=== PATIENT | male | born 1970 | race Caucasian/White ===

== ENCOUNTER 2017-04-04 13:11 | Emergency (ER) | payer MEDICARE, MEDICAID ==
[2017-04-04 13:41] VITALS: BP 125/77
--- NOTE | 2017-04-04 14:26 | UC ---
Skin Complaint HPI - HPI Summary HPI Summary: 46 y/o male presents to the urgent care c/o sores in his lower lip since yesterday. Pt states they are painful and blistering. Pt states Hx of Herpes. He has been using Abreva w/o any improvement. Pain is 7/10 and sometimes itchiness. Pt also states he has been taking Bactrim for a boil he has in his back Rx by his PCP. Pt denies fever, cough, URI, SOB, chest pain, abdominal pain , N/V/D - History of Current Complaint Chief Complaint: UCSkin Time Seen by Provider: 04/04/17 13:43 Stated Complaint: SORES ON LIPS Hx Obtained From: Patient Onset/Duration: Gradual Onset, Lasting Days - 2 days, Still Present Skin Exposure Onset/Duration: Days Ago - yesterday Timing: Constant Onset Severity: Mild Current Severity: Moderate Pain Intensity: 7 Pain Scale Used: 0-10 Numeric Location: Discrete - lower lip Character: Swelling, Pruritus, Painful Aggravating Factor(s): Touch Alleviating Factor(s): OTC Meds Associated Signs & Symptoms: Positive: Rash, Tenderness. Negative: Fever, Chills Related History: Other: - Hx of herpes simplex - Allergy/Home Medications Allergies/Adverse Reactions: Allergies Allergy/AdvReac Type Severity Reaction Status Date / Time Cephalexin [From Keflex] Allergy Hives Verified 04/04/17 13:37 Ranitidine Allergy GI Upset Verified 04/04/17 13:37 Review of Systems Constitutional: Negative Skin: Rash - Over the lower lip painful sores Eyes: Negative ENT: Negative Respiratory: Negative Cardiovascular: Negative Gastrointestinal: Negative Genitourinary: Negative Motor: Negative Neurovascular: Negative Musculoskeletal: Negative Neurological: Negative Psychological: Negative Is Patient Immunocompromised?: No All Other Systems Reviewed And Are Negative: Yes PMH/Surg Hx/FS Hx/Imm Hx Previously Healthy: Yes Endocrine History: Dyslipidemia - Surgical History Surgical History: Yes Surgery Procedure, Year, and Place: 2008 herniated disc , [facility] - Family History Known Family History: Positive: Diabetes, Respiratory Disease - asthma - Social History Occupation: Employed Full-time Lives: With Family Alcohol Use: None Substance Use Type: Marijuana Substance Use Comment - Amount & Last Used: IN THE PAST Smoking Status (MU): Former Smoker Amount Used/How Often: PACK A DAY Have You Smoked in the Last Year: Yes When Did the Patient Quit Smoking/Using Tobacco: 10/2014 - Immunization History Most Recent Influenza Vaccination: n/a Most Recent Tetanus Shot: 11/2013 Physical Exam Triage Information Reviewed: Yes Vital Signs: Initial Vital Signs Temp 97.5 F 04/04/17 13:38 Pulse 71 04/04/17 13:38 Resp 16 04/04/17 13:38 BP 125/77 04/04/17 13:38 Pulse Ox 97 04/04/17 13:38 - Additional Comments Vital Signs Reviewed: Yes General: well developed, well nourished male sitting in the examining table w/o any apparent distress Eye Exam: Normal Eyes: Positive: Conjunctiva Clear - PERRLA, EOMI, fundi grossly normal ENT: Positive: Normal ENT inspection, Hearing grossly normal, Pharynx normal, TMs normal Neck: Positive: Supple, Nontender, No Lymphadenopathy Respiratory: Positive: Chest non-tender, Lungs clear, Normal breath sounds, No respiratory distress Cardiovascular: Positive: RRR, No Murmur, Pulses Normal, Brisk Capillary Refill Abdomen Description: Positive: Nontender, No Organomegaly, Soft. Negative: CVA Tenderness (R), CVA Tenderness (L) Bowel Sounds: Positive: Present Musculoskeletal: Positive: Strength Intact, ROM Intact, No Edema Neurological: Positive: Alert, Muscle Tone Normal Psychological Exam: Normal Skin: Positive: rashes - Positive lower lip with 3 vesicles over the vermilon border, tender to palpation, clear drainage.mild swelling observed Course/Dx - Course Course Of Treatment: 46 y/o male presents to the urgent care c/o sores in his lower lip since yesterday. Pt states they are painful and blistering. Pt states Hx of Herpes. He has been using Abreva w/o any improvement. Pain is 7/10 and sometimes itchiness. Pt also states he has been taking Bactrim for a boil he has in his back Rx by his PCP. Pt denies fever, cough, URI, SOB, chest pain, abdominal pain, N/V/D. Hx obtained. Pt with oral herpes on examination. pt Rx Valtrex PO and Ibuprofen PO to alleviate symptoms. Advised -If symptoms do not improve or worsen to f/u with PCP or return to the urgent care for further evaluation and treatment. Pt understood and agreed with D/C instructions - Differential Diagnoses - Skin Complaint Differential Diagnoses: Allergic Reaction, Impetigo, MRSA, Other - Herpes labialis, aphthous ulcers, stomatitis - Diagnoses Provider Diagnoses: 1- Acute oral herpes simplex Discharge - Discharge Plan Condition: Stable Disposition: HOME Prescriptions: Ibuprofen TAB* [Motrin TAB* 800 MG] 800 mg PO Q6H PRN #20 tab PRN Reason: Pain ValACYclovir (*) [Valtrex 1 GM(*)] 1 gm PO BID #4 tab Patient Education Materials: Oral Herpes Simplex Virus Infections (ED) Referrals: Tye Bhatt MD [Primary Care Provider] - If Needed Additional Instructions: 1- Please take the antibiotic as directed, continue using the Abreva on affected area 2-Please take ibuprofen PO q6-8hrs prn as instructed after meals to alleviate pain and swelling. Increase fluid intake, eat well, rest and avoid strenuous exercise 3-If symptoms do not improve or worsen please return to the urgent care or f/u with your PCP for further evaluation and treatment.
== END 2017-04-04 14:29 | disposition home or self-care (01) ==
LOC: UCEAST 13:11
DX: B00.1 Herpesviral vesicular dermatitis (principal); Z87.891 Personal history of nicotine dependence; Z88.1 Allergy status to other antibiotic agents; Z88.8 Allergy status to other drugs, medicaments and biological substances
CPT/HCPCS: 99202; G0463

== ENCOUNTER 2017-04-29 09:52 | Day surgery (SDC) | payer MEDICARE, MEDICAID ==
--- NOTE | 2017-04-24 00:53 | HP ---
CC: Dr. Bhatt * ADMITTING HISTORY AND PHYSICAL: DATE OF ADMISSION: 04/29/2017 ADMITTING DIAGNOSES: 1. History of gross hematuria. 2. Large left renal calculus. PLANNED PROCEDURE: Left ureteral stent insertion and shockwave lithotripsy of left renal calculus. SURGEON: Dr. Castano. HISTORY OF PRESENT ILLNESS: Jay Delgado Jr. is a 46-year-old gentleman who was initially evaluated for gross hematuria. On a CT urogram, he was noted to have a fairly large 1.6 to 1.7 cm calculus in the left kidney and he is now being brought in for left stent insertion and lithotripsy. PAST MEDICAL HISTORY: Significant for: 1. Depression. 2. Anger issues. PAST SURGICAL HISTORY: Significant for surgery for a herniated disk in the lower back. MEDICATIONS ON ADMISSION: 1. Prozac 10 mg daily. 2. Olanzapine 10 mg daily. 3. Omeprazole 40 mg p.r.n. (He is currently also on Keflex for a small cutaneous abscess in the upper back which he will be finishing in the next few days). ALLERGIES AND INTOLERANCES: PANTOPRAZOLE. SMOKING HISTORY: He is a former 20 back year smoker. PHYSICAL EXAMINATION GENERAL: Reveals a pleasant elderly gentleman. VITAL SIGNS: Blood pressure is 130/92, pulse 67 per minute and regular, temperature 97.5, oxygen saturation 99% on room air. CARDIOVASCULAR EXAM: Regular rate and rhythm. S1, S2. LUNGS: Clear bilaterally. ABDOMEN: Soft with mild left flank tenderness. IMPRESSION: A 46-year-old gentleman with a large calculus in the left kidney and a history of gross hematuria. PLAN: Planned procedure is left ureteral stent insertion and shockwave lithotripsy of left renal calculus. I have discussed the procedure in detail including possible risks of bleeding, infection, injury to the kidney, incomplete fragmentation, and possible need for followup procedures given the large size of the calculus. [id number]/[facility] #: [id number] [facility]
[~2017-04-29 09:52] MED LIST: Buffered Lidocaine 0.9% SYRIN* 5 ML/SYR SYRINGE INTRADERM ONE; Gentamicin ADULT (*) 160 MG in NS 0.9% 100 ML* 100 ML IVPB ONE
[2017-04-29] MEDS ORDERED: Buffered Lidocaine 0.9% SYRIN* 5 ML/SYR SYRINGE ONE (11:00)
--- NOTE | 2017-04-29 11:28 | RAD ---
INDICATION: Shockwave lithotripsy. COMPARISON: Comparison is made with a prior CT of the abdomen and pelvis from April 09, 2017 and a prior KUB series from April 21, 2017. TECHNIQUE: Frontal supine films of the abdomen were obtained. FINDINGS: The small bowel and colon appear nondistended. There are multiple calculi which project over the midportion of the left kidney spanning a 1.6 x 1.5 cm area. These appear similar to the prior study. IMPRESSION: MULTIPLE LEFT RENAL CALCULI.
[2017-04-29] MEDS ORDERED: PROCHLORPERAZINE INJ 5 MG/ML 2 ML VIAL IV PRN (11:46)
[2017-04-29] MEDS ORDERED: HYDROcodone/ACETAMIN 5-325 MG* 1 TAB PO PRN (11:46)
[2017-04-29] MEDS ORDERED: Iohexol 180 (CONTRAST) 10 ML SDV IV ONE (11:53)
[2017-04-29] MEDS ORDERED: fentaNYL* 50 MCG/ML 2 ML VIAL (100 MCG VIAL) ONE ×3 (11:54→14:56)
[2017-04-29] MEDS ORDERED: Midazolam* 1 MG/ML 5 ML VIAL (5 MG) ONE (11:54)
[2017-04-29] MEDS ORDERED: cefTRIAXone(*) 2 GM ADDV.VIAL IVPB ONE (12:03)
[2017-04-29] MEDS ORDERED: Lidocaine 2% PF * 5 ML VIAL ONE (12:05)
[2017-04-29] MEDS ORDERED: Propofol* 10 MG/ML 20 ML BTL IV PUSH ONE (12:05)
[2017-04-29] MEDS ORDERED: Furosemide IV* 10 MG/ML 2 ML VIAL (20 MG) ONE (12:40)
[2017-04-29] MEDS ORDERED: Ondansetron INJ* 2 MG/ML VIAL ONE (12:40)
[2017-04-29] MEDS ORDERED: Tamsulosin CAP* 0.4 MG ONE (13:35)
[2017-04-29] MEDS: oxyCODONE/Acetamin 5/325 MG* TAB PO PRN ×2 (13:35→13:36)
[2017-04-29] MEDS ORDERED: oxyCODONE/Acetamin 5/325 MG* TAB ONE (13:35)
[2017-04-29] MEDS: fentaNYL* 50 MCG/ML 2 ML VIAL (100 MCG VIAL) IV PRN ×4 (14:26→15:05)
[2017-04-29 16:22] VITALS: BP 131/89
--- NOTE | 2017-04-29 17:42 | RAD ---
Indication: Postop LEFT ureteral stent placement. Urolithiasis. Comparison: 1017 hours exam of the same date. Technique: Supine view of the abdomen. Report: Unremarkable bowel gas pattern. Moderately large volume of formed stool in the colon without significant rectal distension. Typical partial obscuration of the renal fossa and course of the ureters by bowel contents Fragmented appearing 2.4 cm stone at the LEFT renal pelvis with suggestion of increased fragmentation compared with the earlier exam of the same day. Otherwise no suspicious calcifications along the course of the LEFT ureteral stent. Unremarkable soft tissue contours. IMPRESSION: Fragmented appearing 2.4 cm stone at the LEFT renal pelvis with suggestion of increased fragmentation compared with the earlier exam of the same day. Otherwise no suspicious calcifications along the course of the LEFT ureteral stent.
--- NOTE | 2017-04-30 04:03 | OP ---
CC: Dr. Tye Bhatt * DATE OF OPERATION: 04/29/17 - [facility] DATE OF : 66 SURGEON: Benny Castano MD ANESTHESIOLOGIST: Dr. Whitfield. ANESTHESIA: General. PRE-OP DIAGNOSES: 1. Gross hematuria. 2. Left renal calculi. POST-OP DIAGNOSES: 1. Gross hematuria. 2. Left renal calculi. OPERATIVE PROCEDURE: 1. Cystoscopy, left retrograde pyelogram, left ureteral stent insertion. 2. Shockwave lithotripsy of left renal calculi. COMPLICATIONS: None. STENT USED: 7-Cuban stent left ureter. POSTOPERATIVE CONDITION: Stable. INDICATIONS: Jay Delgado Jr. is a 46-year-old gentleman who had been evaluated for gross hematuria. He was noted to have what appears to be a cluster of calculi aggregating about 1.5 to 1.8 cm in the left kidney. DESCRIPTION OF PROCEDURE: After induction of general anesthesia, the patient was placed in dorsal lithotomy position. Sequential compression devices were in place and functioning. Initial cystoscopy revealed a normal appearing urethra. The bladder was examined and was unremarkable. A guidewire was introduced into the left ureter. Retrograde pyelogram revealed fullness of the left collecting system with either a cluster of calculi in the mid to lower pole of the left kidney or a partial staghorn calculus. A 7-Cuban stent was introduced and positioned under fluoroscopy with good proximal and distal positioning obtained. Next, the patient was placed on the lithotripsy table in supine position. The calculi, which were now adjacent to the proximal loop of the stent were localized using fluoroscopy and shockwave lithotripsy was commenced at a rate of 60 shocks per minute. After the initial 300 shocks, there was a pause in lithotripsy for several minutes in an effort to minimize any potential trauma to the kidney. Lithotripsy was then resumed and a total of 2400 shocks were administered. The patient tolerated the procedure satisfactorily and was transferred back to the recovery area in stable condition. [id number]/[facility] #: [id number] [facility]
== END 2017-04-29 16:29 | disposition home or self-care (01) ==
LOC: OR 09:52
PROVIDERS: ATTEND Urology
DX: N20.0 Calculus of kidney (principal); R31.0 Gross hematuria; F32.89 Other specified depressive episodes; E66.9 Obesity, unspecified
CPT/HCPCS: 74018; A9270-GY; C1876; J0696; J1580; J1940; J2250; J2405; J2704; J3010

== ENCOUNTER 2018-01-08 07:31 | Emergency (ER) | payer MEDICARE, MEDICAID ==
[2018-01-08] MEDS ORDERED: NS 0.9% 1000 ML* 1,000 ML IV ONE (07:51)
--- NOTE | 2018-01-08 07:51 | ED ---
GI/ HPI - HPI Summary HPI Summary: This patient is a 47 year old M BIBA to [facility] with a chief complaint of one episode of rectal bleeding that occurred last night at 1999 and another that occurred this morning. The patient rates the pain 3/10 in severity and describes it as a burning/cramping sensation. Patient reports ABD pain and ABD cramping. Pt also c/o chest discomfort that has resolved upon arrival. Pt is requesting a work note because he called off this morning. - History of Current Complaint Chief Complaint: EDGIBleed Time Seen by Provider: 01/08/18 07:41 Stated Complaint: GI BLEED Hx Obtained From: Patient Onset/Duration: Started Hours Ago - last night at 1999, Still Present Timing: Constant Severity: Mild Current Severity: Mild Pain Intensity: 3 Location of Pain: Diffuse Pain Characteristics: Cramping Associated Signs and Symptoms: Positive: Chest Pain - that has resolved. Negative: Fever - Allergy/Home Medications Allergies/Adverse Reactions: Allergies Allergy/AdvReac Type Severity Reaction Status Date / Time pantoprazole [From Protonix] Allergy Leg Cramps Verified 01/08/18 07:50 ranitidine Allergy GI Upset Verified 01/08/18 07:50 PMH/Surg Hx/FS Hx/Imm Hx Endocrine/Hematology History: Denies: Hx Diabetes, Hx Thyroid Disease Cardiovascular History: Reports: Hx Angina - PERICARDITIS, Other Cardiovascular Problems/Disorders - pericarditis Denies: Hx Congenital Heart Disease, Hx Congestive Heart Failure, Hx Coronary Artery Disease, Hx Deep Vein Thrombosis, Hx Hypercholesterolemia, Hx Hypotension, Hx Hypertension, Hx Myocardial Infarction, Hx Pacemaker/ICD, Hx Valvular Heart Disease Respiratory History: Denies: Hx Asthma, Hx Chronic Obstructive Pulmonary Disease (COPD) GI History: Reports: Hx Gastroesophageal Reflux Disease, Hx Jaundice - TOOK MEDS RESOLVED Denies: Hx Ulcer, Other GI Disorders History: Reports: Hx Kidney Stones - left Denies: Hx Renal Disease Musculoskeletal History: Reports: Hx Arthritis - LOW BACK, feet, Hx Tendonitis - RIGHT ELBOW, shoulder Sensory History: Reports: Hx Contacts or Glasses - glasses Denies: Hx Eye Injury, Hx Eye Prosthesis, Hx Glaucoma, Hx Deafness, Hx Hearing Aid, Hx Hearing Problem Opthamlomology History: Reports: Hx Contacts or Glasses - glasses Denies: Hx Eye Injury, Hx Eye Prosthesis, Hx Glaucoma Neurological History: Reports: Hx Developmental Delay, 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 hernia repair 2014 Hx Anesthesia Reactions: No - Immunization History Date of Tetanus Vaccine: 2004 Date of Influenza Vaccine: Fall 2011 Infectious Disease History: No Infectious Disease History: Reports: Hx Hepatitis - HEP B TOOK MEDICATIONS- RESOLVED Denies: Hx Human Immunodeficiency Virus (HIV), History Other Infectious Disease, Traveled Outside the [place] in Last 30 Days - Family History Known Family History: Positive: Diabetes, Respiratory Disease - asthma - Social History Occupation: Employed Full-time Alcohol Use: None Substance Use Type: Reports: Marijuana Substance Use Comment - Amount & Last Used: IN THE PAST Smoking Status (MU): Former Smoker Amount Used/How Often: PACK A DAY, smoked off and on for 20 years Have You Smoked in the Last Year: Yes Review of Systems Negative: Fever Positive: Chest Pain - that has resolved Positive: Abdominal Pain, Other - blood in stool All Other Systems Reviewed And Are Negative: Yes Physical Exam - Summary Physical Exam Summary: VITAL SIGNS: Reviewed. GENERAL: Patient is a well-developed and nourished male who is lying comfortable in the stretcher. Patient is not in any acute respiratory distress. HEAD AND FACE: No signs of trauma. No ecchymosis, hematomas or skull depressions. No sinus tenderness. EYES: PERRLA, EOMI x 2, No injected conjunctiva, no nystagmus. EARS: Hearing grossly intact. Ear canals and tympanic membranes are within normal limits. MOUTH: Oropharynx within normal limits. NECK: Supple, trachea is midline, no adenopathy, no JVD, no carotid bruit, no c- spine tenderness, neck with full ROM. CHEST: Symmetric, no tenderness at palpation LUNGS: Clear to auscultation bilaterally. No wheezing or crackles. CVS: Regular rate and rhythm, S1 and S2 present, no murmurs or gallops appreciated. ABDOMEN: Soft, non-tender. No signs of distention. No rebound no guarding, and no masses palpated. Bowel sounds are normal. EXTREMITIES: FROM in all major joints, no edema, no cyanosis or clubbing. NEURO: Alert and oriented x 3. No acute neurological deficits. Speech is normal and follows commands. SKIN: Dry and warm Rectal: normal sphincter tone no external hemorrhoids No gross blood no melena Triage Information Reviewed: Yes Vital Signs On Initial Exam: Initial Vitals Temp Pulse Resp BP Pulse Ox 97.9 F 53 18 149/90 95 01/08/18 07:41 01/08/18 07:41 01/08/18 07:41 01/08/18 07:41 01/08/18 07:41 Vital Signs Reviewed: Yes Diagnostics - Vital Signs Vital Signs Temp Pulse Resp BP Pulse Ox 01/08/18 07:41 97.9 F 53 18 149/90 95 - Laboratory Result Diagrams: 01/08/18 08:56 01/08/18 08:56 Lab Statement: Any lab studies that have been ordered have been reviewed, and results considered in the medical decision making process. - Radiology ABD XRAY Radiology Interpretation Completed By: Radiologist - NONSPECIFIC BOWEL GAS PATTERN. LEFT NEPHROLITHIASIS. ED physician has reviewed this radiology report. - EKG 07:41 Cardiac Rate: Bradycardia EKG Rhythm: Sinus Bradycardia - at 52 BPM EKG Interpretation: no STEMI EKG Comparison: No Significant Change - Unchanged from 06-16-12 GIGU Course/Dx - Course Assessment/Plan: This patient is a 47-year-old male who presents to the emergency department with chief complaint of having rectal bleeding and some abdominal cramping since yesterday. Patient reported that after he had a bowel movement he noticed some blood when he wiped himself with the toilet paper. First episode was at 3 PM and the second episode was at 7 PM. Patient has no history of hemorrhoids. Patient denies any blood thinners or any use of aspirin or NSAIDs. Blood test results shows a slight decrease in a hemoglobin of 13.9 and a hematocrit of 41. Platelets are 137. Glucose 119. Stool blood is negative. Chest pain is resolved. Troponin is negative and patient has no comorbidities. In the ED course the patient was given IV fluids. Abdomen x- ray with no acute pathology. Since the patient is hemodynamically stable, the H &H is stable, and the stool occult blood is negative I believe that the patient can be safely discharged home with follow-up with primary care physician. The patient was given instructions to return to the emergency department he develops any other episodes of rectal bleed, abdominal pain, dizziness, palpitations. I discussed all the findings and test results with the patient. Patient was instructed to return to the emergency room immediately if any of the symptoms return or worsens. Plan of care was discussed with the patient and understands and agrees. All questions were answered at patient satisfaction. There were no further complaints or concerns. Lung exam before discharge: CTA B/L. Good air exchange. No wheezing or crackles heard. CVS: S1 and S2 present. No murmurs appreciated. Patient is alert and oriented x 3. Patient is hemodynamically stable. Patient will be discharged home with follow up PCP in the next 2-3 days - Diagnoses Provider Diagnoses: Rectal bleed, Abdominal cramping Discharge - Sign-Out/Discharge Documenting (check all that apply): Patient Departure - Discharge Plan Condition: Stable Disposition: HOME Patient Education Materials: Rectal Bleeding (ED), Acute Abdominal Pain (ED) Forms: *Work Release Referrals: Tye Bhatt MD [Primary Care Provider] - 2 Days Additional Instructions: RETURN TO THE EMERGENCY DEPARTMENT FOR CHANGING OR WORSENING SYMPTOMS. FOLLOW UP WITH PCP IN 1-2 DAYS. - Billing Disposition and Condition Condition: STABLE Disposition: Home - Attestation Statements Document Initiated by Tona: Yes Documenting Scribe: Anthony Palumbo Provider For Whom Tona is Documenting (Include Credential): Joey Vu MD Scribe Attestation: Anthony Adorno scribed for Joey Vu MD on 01/08/18 at 1041. Scribe Documentation Reviewed: Yes Provider Attestation: The documentation as recorded by the Anthony brown accurately reflects the service I personally performed and the decisions made by me, Joey Vu MD
[2018-01-08] MEDS ORDERED: Pantoprazole IV* 40 MG IV ONE (07:53)
[2018-01-08] MEDS ORDERED: Aspirin 81 mg CHEW TAB* 81 MG TAB.CHEW PO ONE (07:54)
--- NOTE | 2018-01-08 08:25 | RAD ---
HISTORY: Abdominal pain COMPARISONS: May 28, 2017 VIEWS: Frontal supine and upright views of the abdomen. FINDINGS: BOWEL: There is a nonspecific bowel gas pattern, with nondilated small bowel gas noted. There is a moderate amount of stool within the colon. CALCULI: Again noted are calculi overlying the left renal parenchymal shadow stable from May 28, 2012. BONES AND SOFT TISSUES: Mild degenerative changes are noted. OTHER FINDINGS: The lung bases are clear. There is no subphrenic gas. IMPRESSION: NONSPECIFIC BOWEL GAS PATTERN. LEFT NEPHROLITHIASIS.
[2018-01-08 09:06] LABS: ABS Basophils 0 10^3/ul (0-0.2); ABS Eosinophils 0.1 10^3/ul (0-0.6); ABS Lymphocytes 2.1 10^3/ul (1.0-4.8); ABS Monocytes 0.6 10^3/ul (0-0.8); ABS Nucleated RBC 0 10^3/ul; Eosinophil % 1.9 % (0-6); Hematocrit 41 % (42-52); Hemoglobin 13.9 g/dl (14.0-18.0); Lymphocyte % 36.6 % (25-47); Mean Corpuscular HGB Conc 34 g/dl (31-36); Mean Corpuscular Hemoglobin 30 pg (27-31); Mean Corpuscular Volume 88 fL (80-94); Mean Platelet Volume 9.3 um3 (7.4-10.4); Nucleated Red Blood Cells % 0; Platelet Count 137 10^3/ul (150-450); Red Blood Count 4.58 10^6/ul (4.00-5.40); Red Cell Distribution Width 14 % (10.5-15); White Blood Count 5.8 10^3/ul (3.5-10.8)
[2018-01-08 09:14] LABS: INR 0.95 (0.77-1.02)
[2018-01-08 09:27] LABS: EGFR Non-African American 97.1 (>60)
[2018-01-08 09:43] VITALS: BP 149/85
== END 2018-01-08 10:02 | disposition home or self-care (01) ==
LOC: ED 07:31
DX: K62.5 Hemorrhage of anus and rectum (principal); R10.9 Unspecified abdominal pain; N20.0 Calculus of kidney; F32.9 Major depressive disorder, single episode, unspecified; F41.9 Anxiety disorder, unspecified; Z87.891 Personal history of nicotine dependence
CPT/HCPCS: 36415; 74019; 80053; 82272; 83690; 84484; 85025; 85610; 85730; 86140; 86850; 86900; 86901; 93005; 96361; 96374; 99283

== ENCOUNTER 2018-07-27 08:09 | Emergency (ER) | payer MEDICARE, MEDICAID ==
--- NOTE | 2018-07-27 08:33 | ED ---
Abdominal Pain/Male - HPI Summary HPI Summary: This pt is a 48 y/o male presenting to [facility] via EMS for lower abd pain for the past 4 days. Pt reports his symptoms began with nausea 4 days ago and then with diarrhea. He describes diarrhea as watery, nonbloody and without mucous. He notes now his symptoms have worsen and has lower abd pain with "a lot of gas." Additionally states his urine is bella color. Denies fever or chills. Denies recent travel and recent antibiotics. Pt states he has been taking Nyquil and Dayquil for flu symptoms. - History of Current Complaint Stated Complaint: ABD PAIN PER EMS Time Seen by Provider: 07/27/18 08:14 Hx Obtained From: Patient Onset/Duration: Lasting Days, Still Present Timing: Lasting Days Severity Currently: Moderate Pain Scale Used: 0-10 Numeric Location: Other - lower abdominal Radiates: No Aggravating Factor(s): Nothing Alleviating Factor(s): Nothing Associated Signs And Symptoms: Positive: Nausea, Diarrhea, Other - POS: urine is bella color. Negative: Fever, Chest Pain - Allergies/Home Medications Allergies/Adverse Reactions: Allergies Allergy/AdvReac Type Severity Reaction Status Date / Time pantoprazole [From Protonix] Allergy Leg Cramps Verified 01/08/18 07:50 ranitidine Allergy GI Upset Verified 01/08/18 07:50 PMH/Surg Hx/FS Hx/Imm Hx Endocrine/Hematology History: Denies: Hx Diabetes, Hx Thyroid Disease Cardiovascular History: Reports: Hx Angina - PERICARDITIS, Other Cardiovascular Problems/Disorders - pericarditis Denies: Hx Congenital Heart Disease, Hx Congestive Heart Failure, Hx Coronary Artery Disease, Hx Deep Vein Thrombosis, Hx Hypercholesterolemia, Hx Hypotension, Hx Hypertension, Hx Myocardial Infarction, Hx Pacemaker/ICD, Hx Valvular Heart Disease Respiratory History: Denies: Hx Asthma, Hx Chronic Obstructive Pulmonary Disease (COPD) GI History: Reports: Hx Gastroesophageal Reflux Disease, Hx Jaundice - TOOK MEDS RESOLVED Denies: Hx Ulcer, Other GI Disorders History: Reports: Hx Kidney Stones - left Denies: Hx Renal Disease Musculoskeletal History: Reports: Hx Arthritis - LOW BACK, feet, Hx Tendonitis - RIGHT ELBOW, shoulder Sensory History: Reports: Hx Contacts or Glasses - glasses Denies: Hx Eye Injury, Hx Eye Prosthesis, Hx Glaucoma, Hx Deafness, Hx Hearing Aid, Hx Hearing Problem Opthamlomology History: Reports: Hx Contacts or Glasses - glasses Denies: Hx Eye Injury, Hx Eye Prosthesis, Hx Glaucoma Neurological History: Reports: Hx Developmental Delay, 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 hernia repair 2014 Hx Anesthesia Reactions: No - Immunization History Date of Tetanus Vaccine: 2004 Date of Influenza Vaccine: Fall 2011 Infectious Disease History: Reports: Hx Hepatitis - HEP B TOOK MEDICATIONS- RESOLVED Denies: Hx Human Immunodeficiency Virus (HIV), History Other Infectious Disease - Family History Known Family History: Positive: Diabetes, Respiratory Disease - asthma - Social History Alcohol Use: None Substance Use Type: Reports: Marijuana Substance Use Comment - Amount & Last Used: IN THE PAST Smoking Status (MU): Former Smoker Amount Used/How Often: PACK A DAY, smoked off and on for 20 years Have You Smoked in the Last Year: Yes Review of Systems Negative: Fever, Chills Positive: Abdominal Pain, Diarrhea, Nausea Genitourinary: Other - POS: urine is bella color All Other Systems Reviewed And Are Negative: Yes Physical Exam - Summary Physical Exam Summary: VITAL SIGNS: Reviewed. GENERAL: Patient is a well-developed and nourished male who is lying comfortable in the stretcher. Patient is not in any acute respiratory distress. HEAD AND FACE: Normocephalic and atraumatic. EYES: PERRLA, EOMI x 2, No injected conjunctiva. EARS: Hearing grossly intact. Ear canals and tympanic membranes are WNL. MOUTH: Oropharynx within normal limits. NECK: Supple, trachea is midline, no adenopathy, no JVD. CHEST: Symmetric, no tenderness at palpation LUNGS: Clear to auscultation bilaterally. No wheezing or crackles. CVS: RRR, S1 and S2 present, no murmurs or gallops appreciated. ABDOMEN: Soft, lower abdominal tenderness. No signs of distention. Positive bowel sounds. No rebound no guarding, and no masses palpated. No abdominal bruit or pulsations. EXTREMITIES: FROM in all major joints, no edema, no cyanosis or clubbing. NEURO: Alert and oriented x 3. No acute neurological deficits. Speech is normal. SKIN: Dry and warm Triage Information Reviewed: Yes Vital Signs Reviewed: Yes Diagnostics - Laboratory Result Diagrams: 07/27/18 08:36 07/27/18 08:36 Lab Statement: Any lab studies that have been ordered have been reviewed, and results considered in the medical decision making process. - EKG 08:39 Cardiac Rate: Bradycardia - at 57 bpm EKG Rhythm: Sinus Bradycardia Summary of EKG Findings: No ST elevations. Normal axis. Re-Evaluation - Re-Evaluation First Eval Re-Evaluation Time: 10:40 Comment: Pt provided a stool sample and it was formed. No diarrhea. I reviewed the lab results with pt. He will be discharged home. Abdominal Pain Male Course/Dx - Course Assessment/Plan: This patient is a 48-year-old male who presents to the emergency department with chief complaint of having nausea, vomiting, diarrhea and diffuse abdominal pain. Blood work without any significant abnormality except for platelets of 142, CRP of 13.2, total protein is 6.3, urinalysis is negative UTI. The patient was able to give a stool sample which is formed and is not diarrhea therefore the patient is getting better. After hydration the patient will be discharged home with follow-up from his primary care physician. I discussed all the findings and test results with the patient. Patient was instructed to return to the emergency room immediately if any of the symptoms return worsens. Plan of care was discussed with the patient and understands and agrees. All questions were answered at patient satisfaction. There were no further complaints or concerns. Lung exam before discharge: CTA B/L. Good air exchange. No wheezing or crackles heard. CVS: S1 and S2 present. No murmurs appreciated. Patient is alert and oriented x 3. Patient is hemodynamically stable. Patient will be discharged home with follow up PCP in the next 2-3 days. - Diagnoses Provider Diagnoses: Nausea and vomiting Discharge - Sign-Out/Discharge Documenting (check all that apply): Patient Departure - Discharge home Patient Received Moderate/Deep Sedation with Procedure: No - Discharge Plan Condition: Stable Disposition: HOME Patient Education Materials: Acute Nausea and Vomiting (ED) Referrals: Tye Bhatt MD [Primary Care Provider] - Additional Instructions: PLEASE FOLLOW UP WITH YOUR PRIMARY CARE PROVIDER IN 2-3 DAYS. RETURN TO THE ED FOR ANY WORSENING OR NEW SYMPTOMS. - Billing Disposition and Condition Condition: STABLE Disposition: Home - Attestation Statements Document Initiated by Tona: Yes Documenting Scribe: Ivy Soler Provider For Whom Scribe is Documenting (Include Credential): Joey Vu MD Scribe Attestation: Ivy Adorno, scribed for Joey Vu MD on 07/27/18 at 1838. Scribe Documentation Reviewed: Yes Provider Attestation: The documentation as recorded by the Ivy brown accurately reflects the service I personally performed and the decisions made by , Joey Vu MD Status of Scribe Document: Viewed
[2018-07-27 08:46] LABS: ABS Basophils 0 10^3/ul (0-0.2); ABS Eosinophils 0.1 10^3/ul (0-0.6); ABS Lymphocytes 1.6 10^3/ul (1.0-4.8); ABS Monocytes 0.9 10^3/ul (0-0.8); ABS Neutrophils 3.2 10^3/ul (1.5-7.7); ABS Nucleated RBC 0 10^3/ul; Eosinophil % 1.4 %; Hematocrit 41 % (36-46); Hemoglobin 14.1 g/dL (14.0-18.0); Lymphocyte % 27.6 %; Mean Corpuscular HGB Conc 34 g/dL (31-36); Mean Corpuscular Hemoglobin 30 pg (27-31); Mean Corpuscular Volume 88 fL (80-94); Mean Platelet Volume 8.8 fL (7.4-10.4); Nucleated Red Blood Cells % 0.1; Platelet Count 142 10^3/uL (150-450); Red Blood Count 4.65 10^6 /uL (4.18-5.48); Red Cell Distribution Width 14 % (10.5-15); White Blood Count 5.8 10^3/uL (3.5-10.8)
[2018-07-27 09:02] LABS: Albumin 3.9 g/dL (3.2-5.2); Albumin/Globulin Ratio 1.6 (1-3); C Reactive Protein 13.21 mg/L (<8.01); Calcium 8.9 mg/dL (8.6-10.3); EGFR African American 123.8 (>60); EGFR Non-African American 102.3 (>60); Globulin 2.4 g/dL (2-4); Total Bilirubin 0.9 mg/dL (0.2-1.0); Total Protein 6.3 g/dL (6.4-8.9)
[2018-07-27 09:24] LABS: Urine Appearance Cloudy; Urine Bilirubin Negative (Negative); Urine Blood Negative (Negative); Urine Color Amber; Urine Glucose Negative (Negative); Urine Ketones Negative (Negative); Urine Nitrite Negative (Negative); Urine Protein Negative (Negative); Urine Specific Gravity 1.025 (1.010-1.030); Urine Urobilinogen Negative (Negative)
[2018-07-27 10:56] VITALS: BP 107/71
== END 2018-07-27 10:56 | disposition home or self-care (01) ==
LOC: ED 08:09
DX: R11.2 Nausea with vomiting, unspecified (principal); R10.30 Lower abdominal pain, unspecified; Z87.891 Personal history of nicotine dependence; K21.9 Gastro-esophageal reflux disease without esophagitis; Z87.442 Personal history of urinary calculi; R62.50 Unspecified lack of expected normal physiological development in childhood; F41.9 Anxiety disorder, unspecified; F32.9 Major depressive disorder, single episode, unspecified
CPT/HCPCS: 36415; 80053; 81003; 82550; 83605; 83690; 85025; 86140; 93005; 99282

== ENCOUNTER 2019-02-25 20:44 | Emergency (ER) | payer MEDICAID, MEDICARE ==
[~2019-02-25 20:44] MED LIST changes: -Buffered Lidocaine 0.9% SYRIN* 5 ML/SYR SYRINGE INTRADERM ONE; -Gentamicin ADULT (*) 160 MG in NS 0.9% 100 ML* 100 ML IVPB ONE; +Lidocaine 2% w/ EPI 1:200,000* 20 ML SDV VIAL INJ SCH
[2019-02-25] MEDS ORDERED: Ketorolac INJ* 30 MG/ML 1 ML VIAL IM ONE ×2 (21:40)
--- NOTE | 2019-02-25 21:42 | ED ---
Neck Pain - HPI Summary HPI Summary: 48 year old male presents with back pain for the past couple days. He states he was walking at work when he felt a pop. He states that he had numbness into his hands. He states that has resolved. States has been having pain since. He states today at work felt another pop. He states that he did not develop numbness with this time. He denies any weakness. No numbness or tingling currently. Has full range of motion neck. No fevers. No recent illness. He denies any chest pain or shortness breath. No headache. No visual changes. Pain is mostly on the side of his neck. Denies any history of neck issues. Has history of mental health issues. - History of Current Complaint Chief Complaint: EDNeckComplaint Stated Complaint: GENERAL PER PT Time Seen by Provider: 02/25/19 21:30 Pain Intensity: 8 - Allergies/Home Medications Allergies/Adverse Reactions: Allergies Allergy/AdvReac Type Severity Reaction Status Date / Time pantoprazole [From Protonix] Allergy Leg Cramps Verified 02/25/19 21:23 ranitidine Allergy GI Upset Verified 02/25/19 21:23 PMH/Surg Hx/FS Hx/Imm Hx Endocrine/Hematology History: Denies: Hx Diabetes, Hx Thyroid Disease Cardiovascular History: Reports: Hx Angina - PERICARDITIS, Other Cardiovascular Problems/Disorders - pericarditis Denies: Hx Congenital Heart Disease, Hx Congestive Heart Failure, Hx Coronary Artery Disease, Hx Deep Vein Thrombosis, Hx Hypercholesterolemia, Hx Hypotension, Hx Hypertension, Hx Myocardial Infarction, Hx Pacemaker/ICD, Hx Valvular Heart Disease Respiratory History: Denies: Hx Asthma, Hx Chronic Obstructive Pulmonary Disease (COPD) GI History: Reports: Hx Gastroesophageal Reflux Disease, Hx Jaundice - TOOK MEDS RESOLVED Denies: Hx Ulcer, Other GI Disorders History: Reports: Hx Kidney Stones - left Denies: Hx Renal Disease Musculoskeletal History: Reports: Hx Arthritis - LOW BACK, feet, Hx Tendonitis - RIGHT ELBOW, shoulder Sensory History: Reports: Hx Contacts or Glasses - glasses Denies: Hx Eye Injury, Hx Eye Prosthesis, Hx Glaucoma, Hx Deafness, Hx Hearing Aid, Hx Hearing Problem Opthamlomology History: Reports: Hx Contacts or Glasses - glasses Denies: Hx Eye Injury, Hx Eye Prosthesis, Hx Glaucoma Neurological History: Reports: Hx Developmental Delay, 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 hernia repair 2014 Hx Anesthesia Reactions: No - Immunization History Date of Tetanus Vaccine: 2004 Date of Influenza Vaccine: Fall 2011 Infectious Disease History: No Infectious Disease History: Reports: Hx Hepatitis - HEP B TOOK MEDICATIONS- RESOLVED Denies: Hx Human Immunodeficiency Virus (HIV), History Other Infectious Disease, Traveled Outside the in Last 30 Days - Family History Known Family History: Positive: Diabetes, Respiratory Disease - asthma - Social History Alcohol Use: None Substance Use Type: Reports: Marijuana Substance Use Comment - Amount & Last Used: IN THE PAST Smoking Status (MU): Former Smoker Amount Used/How Often: PACK A DAY, smoked off and on for 20 years Have You Smoked in the Last Year: Yes Review of Systems Negative: Fever Negative: Chest Pain Negative: Shortness Of Breath Positive: Myalgia - neck pain All Other Systems Reviewed And Are Negative: Yes Physical Exam Triage Information Reviewed: Yes Vital Signs On Initial Exam: Initial Vitals Temp Pulse Resp BP Pulse Ox 98.2 F 88 18 140/96 96 02/25/19 21:10 02/25/19 21:10 02/25/19 21:10 02/25/19 21:10 02/25/19 21:10 Vital Signs Reviewed: Yes Appearance: Positive: Well-Appearing Skin: Positive: Warm, Dry Head/Face: Positive: Normal Head/Face Inspection Eyes: Positive: Normal, Conjunctiva Clear ENT: Positive: Pharynx normal Respiratory/Lung Sounds: Positive: Clear to Auscultation, Breath Sounds Present Cardiovascular: Positive: Normal, RRR Musculoskeletal: Positive: Strength/ROM Intact - neck, Other - tenderness sides of neck, good site leasing agent strength, sensation grossly intact, good pulses Neurological: Positive: Normal, Reflexes Intact - biceps Psychiatric: Positive: Normal Procedures - Sedation Patient Received Moderate/Deep Sedation with Procedure: No Diagnostics - Vital Signs Vital Signs Temp Pulse Resp BP Pulse Ox 02/25/19 21:10 98.2 F 88 18 140/96 96 - Laboratory Lab Statement: Any lab studies that have been ordered have been reviewed, and results considered in the medical decision making process. - CT neck CT Interpretation Completed By: Radiologist Summary of CT Findings: IMPRESSION: Mild multilevel cervical spondylopathy. Re-Evaluation - Re-Evaluation First Eval Re-Evaluation Time: 23:25 Change: Improved Comment: feeling better Neck Course/Dx - Course Course Of Treatment: 48 year old male presents with back pain for the past couple days. He states he was walking at work when he felt a pop. He states that he had numbness into his hands. He states that has resolved. States has been having pain since. He states today at work felt another pop. He states that he did not develop numbness with this time. He denies any weakness. No numbness or tingling currently. Has full range of motion neck. No fevers. No recent illness. He denies any chest pain or shortness breath. No headache. No visual changes. Pain is mostly on the side of his neck. Denies any history of neck issues. Has history of mental health issues. On exam has tenderness over sides of neck. Neurovascular intact. CT shows multilevel degenerative changes. will discharge with steriods and lidocaine patch. patient understand and agrees with plan. - Diagnoses Differential Dx/HQI/PQRI: Positive: Arthritis, Sprain, Strain Provider Diagnoses: Neck pain Discharge ED - Sign-Out/Discharge Documenting (check all that apply): Patient Departure - Discharge Plan Condition: Good Disposition: HOME Prescriptions: Lidocaine PATCH 5%* [Lidoderm 5% Patch*] 1 patch TRANSDERM DAILY #5 patch methylPREDNISolone [Medrol Dosepak 4 MG*] 4 mg PO .SEE WILLA INSTRUCTION #1 packet Patient Education Materials: Neck Pain (ED) Forms: *Work Release Referrals: Tye Bhatt MD [Primary Care Provider] - Additional Instructions: Follow directions on package for Medrol pack Apply lidocaine patches to area for up to 12 hours in one 24 hour period Use ibuprofen or Tylenol for pain every 6 hours ice/heat area, move as much as possible Follow up with primary within 5 days Return to ED if develop any new or worsening symptoms - Billing Disposition and Condition Condition: GOOD Disposition: Home
--- OUTSIDE RECORDS SUMMARY | 2019-02-25 21:44 | XMS REPORT | Continuity of Care Document ---
:1970 External Reference #:[id number] Author Name Kala Matson, SUSI Address [address] [place] [address] Care Team Providers Name Role Phone Ananth Marin MD - Surgery Care Team Information Lead Person [phone] [facility] Physical Care Team Information Lead Person Therapy - Physical Therapy Mele Schafer MD - Orthopaedic Care Team Information Lead Person Surgery Benny Castano - Urology Care Team Information Lead Person [phone] Problems Active Problems Provider Date Hyperlipidemia Tye Bhatt M.D. Onset: 12/18/2006 Low back pain Tye Bhatt M.D. Onset: 01/29/2007 Gastroesophageal reflux disease Tye Bhatt M.D. Onset: 01/29/2007 Anxiety state Tye Bhatt M.D. Onset: 04/09/2007 Obesity Tye Bhatt M.D. Onset: 11/10/2007 Pure hyperglyceridemia Tye Bhatt M.D. Onset: 03/05/2009 Type 2 diabetes mellitus Tye Bhatt M.D. Onset: 07/02/2009 Epigastric pain Tye Bhatt M.D. Onset: 12/20/2010 Arthropathy Tye Bhatt M.D. Onset: 12/20/2010 Epidermoid cyst Tye Bhatt M.D. Onset: 02/03/2011 Acute sinusitis Tye Bhatt M.D. Onset: 04/15/2011 Acute bronchitis Tye Bhatt M.D. Onset: 04/15/2011 Acute upper respiratory infection Tye Bhatt M.D. Onset: 04/15/2011 Cough Tye Bhatt M.D. Onset: 07/14/2011 Allergic condition Tye Bhatt M.D. Onset: 07/14/2011 Enteritis due to specified virus Alex Tam M.D. Onset: 08/07/2011 Nausea Tye Bhatt M.D. Onset: 08/25/2011 Constipation Tye Bhatt M.D. Onset: 09/20/2011 Cellulitis and abscess of trunk Tye Bhatt M.D. Onset: 09/20/2011 Allergic rhinitis Tye Bhatt M.D. Onset: 09/20/2011 Cellulitis Nicole Benavides M.D. Onset: 09/25/2011 Cellulitis Alex Tam M.D. Onset: 10/23/2011 Acute pharyngitis Tye Bhatt M.D. Onset: 03/02/2012 H/O: sexual function problem Tye Bhatt M.D. Onset: 03/02/2012 Herpes simplex Tye Bhatt M.D. Onset: 03/13/2012 Arthralgia of the pelvic region and thigh Tye Bhatt M.D. Onset: 2012 Diarrhea Tye Bhatt M.D. Onset: 07/20/2012 Impacted cerumen Tye Bhatt M.D. Onset: 08/27/2012 Dermatophytosis of the body Tye Bhatt M.D. Onset: 08/29/2013 Open wound of finger without complication Tye Bhatt M.D. Onset: 2013 Abnormal weight gain Tye Bhatt M.D. Onset: 06/19/2014 Adult health examination Tye Bhatt M.D. Onset: 10/09/2014 Cramp in lower leg associated with rest Tye Bhatt M.D. Onset: 2014 High risk sexual behavior Tye Bhatt M.D. Onset: 12/03/2015 Recurrent major depressive episodes Tye Bhatt M.D. Onset: 12/25/2016 Sciatica Tye Bhatt M.D. Onset: 12/25/2016 Feeling irritable Tye Bhatt M.D. Onset: 03/24/2017 Social History Type Date Description Comments Sex Unknown Tobacco Use Start: Unknown Nonsmoker ETOH Use Occasional Tobacco Use Start: Unknown End: Unknown Patient is a former smoker Smoking Status Reviewed: 01/09/18 Patient is a former smoker Allergies, Adverse Reactions, Alerts Active Allergies Reaction Severity Comments Date Pantoprazole severe headache, muscle cramps. 04/26/2013 Zantac 09/09/2017 Inactive Allergies Keflex diarrhea 11/03/2012 Medications Active Medications SIG Qnty Indications Ordering Provider Date Omeprazole 2 by mouth 42caps K21.9 Tiffanie Hoover, [employer] SUPERVISOR 11/24/2018 20mg Capsules every day for DR two weeks, then 1 po qd History Medications Note please administer 1units Tye Bhatt, 09/17/2018 - the Hep A/Hep b Lizzie 12/30/2018 vaccine Azithromycin 2 by mouth today 6tabs J06Andrei Hair 08/05/2018 - 250mg then 1 by mouth Lizzie Ho 08/10/2018 Tablets every day x 4 days Ipratropium [place] 2 sprays each 30ml J06Andrei Hair 08/05/2018 - nostril three Lizzie Ho 08/12/2018 0.06% Solution times a day Note For Work Jay was seen by A09 Tiffanie Hoover, 07/28/2018 - me today, has [employer] SU[employer]OR 08/05/2018 missed work on 3\\30, 4\\1, 4\\2\\ and 4\\3. He may not return to work until 4\\5. Medications Administered in Office Medication SIG Qnty Indications Ordering Provider Date TB Intradermal Test Tye Bhatt M.D. 12/22/2018 Injection Injection Subcutaneous Or Donte Cortés M.D. 12/08/2008 Intramuscular Injection TB Intradermal Test Nurse, Nurse 03/10/2000 Injection Immunizations CPT Code Status Date Vaccine Lot # [id number] Given 04/08/2016 Influenza Vac, Quadrivalent, Slit Virus, Im [id number] Given 12/13/2013 Tetanus And Diptheria Adult Preservative Free >7Yrs [id number] Given 02/23/2013 Split Influenza Medicare: Fluzone 97069 Given 02/23/2013 DO Not Use Split Influenza Virus Vaccine [id number] 72144 Given 01/13/2012 DO Not Use Split Influenza Virus Vaccine [id number] 17613 Given 02/03/2011 Preservative free flu 3 yrs+ and older [id number] 63161 Given 02/23/2010 DO Not Use Split Influenza Virus Vaccine [id number] Given 02/16/2008 DO Not Use Split Influenza Virus Vaccine [id number] 11806 Given 09/12/2002 Td Immunization, For Use In Individuals 7 Years Or Older Vital Signs Date Vital Result Comment 12/30/2018 5:49pm BP Systolic 140 mmHg BP Diastolic 80 mmHg Heart Rate 84 /min Body Temperature 98.8 F Respiratory Rate 16 /min Height 76.75 inches 6'4.75" measured 12/25/16 Weight 321.00 lb BMI (Body Mass Index) 38.3 kg/m2 11/24/2018 12:05pm BP Systolic 144 mmHg BP Diastolic 100 mmHg Heart Rate 80 /min Body Temperature 98.4 F Respiratory Rate 12 /min Height 76.75 inches 6'4.75" measured 12/25/16 Weight 320.00 lb BMI (Body Mass Index) 38.2 kg/m2 Results Test Date Facility Test Result H/L Range Note Laboratory test [facility] RPR Non Reactive Non Reactive 1 finding 9 [address] [place] [address] (103)- - HSV 1 & 2 Igm [facility] HSV 1 IgM <1:10 titer <1:10 AB, Indirect 9 [address] [facility] [place] [address] (141)- - HSV 2 IgM Antibodies <1:10 titer <1:10 2 Chlamydia/GC 11/24/2018 [facility] Chlamydia Negative Negative Amplification [address] [facility] trachomatis, [place] [address] (508)- - Neisseria gonorrhoeae, [place] Negative Negative Laboratory test 11/24/2018 [facility] HIV 1&2 Antibody neg Negative finding (313)- - Screen (Fma) HCV AB (Fma) neg negative CBC Auto Diff 07/27/2018 [facility] White Blood Count 5.8 10^3/uL Normal 3.5- 10.8 Red Blood Count 4.65 10^6/uL Normal 4.18-5.48 Hemoglobin 14.1 g/dL Normal 14.0-18.0 Hematocrit 41 % Normal 36-46 Mean Corpuscular Volume 88 fL Normal 80-94 Mean Corpuscular Hemoglobin 30 pg Normal 27-31 Mean Corpuscular HGB Conc 34 g/dL Normal 31-36 Red Cell Distribution Width 14 % Normal 10.5-15 Platelet Count 142 10^3/uL Low 150-450 Mean Platelet Volume 8.8 fL Normal 7.4-10.4 Abs Neutrophils 3.2 10^3/uL Normal 1.5-7.7 Abs Lymphocytes 1.6 10^3/uL Normal 1.0-4.8 Abs Monocytes 0.9 10^3/uL High 0-0.8 Abs Eosinophils 0.1 10^3/uL Normal 0-0.6 Abs Basophils 0 10^3/uL Normal 0-0.2 Abs Nucleated RBC 0 10^3/uL Granulocyte % 55.5 % Lymphocyte % 27.6 % Monocyte % 15.0 % Eosinophil % 1.4 % Basophil % 0.5 % Nucleated Red Blood Cells % 0.1 Laboratory test finding 07/27/2018 [facility] Lactic Acid 0.9 mmol/L Normal 0.5- 2.0 3 Comp Metabolic Panel 07/27/2018 [facility] Sodium 139 mmol/L Normal 135-145 Potassium 4.0 mmol/L Normal 3.5-5.0 Chloride 106 mmol/L Normal 101-111 Co2 Carbon Dioxide 28 mmol/L Normal 22-32 Anion Gap 5 mmol/L Normal 2-11 Glucose 109 mg/dL High 70-100 Blood Urea Nitrogen 16 mg/dL Normal 6-24 Creatinine 0.80 mg/dL Normal 0.67-1.17 BUN/Creatinine Ratio 20.0 Normal 8-20 Calcium 8.9 mg/dL Normal 8.6-10.3 Total Protein 6.3 g/dL Low 6.4-8.9 Albumin 3.9 g/dL Normal 3.2-5.2 Globulin 2.4 g/dL Normal 2-4 Albumin/Globulin Ratio 1.6 Normal 1-3 Total Bilirubin 0.90 mg/dL Normal 0.2-1.0 Alkaline Phosphatase 45 U/L Normal 34-104 Alt 37 U/L Normal 7-52 Ast 23 U/L Normal 13-39 Egfr Non- 102.3 >60 Egfr 123.8 >60 4 Laboratory test finding 07/27/2018 [facility] [place]ase 14 U/L Normal 11.0-82.0 Creatine Kinase(CK) 202 U/L Normal 10-223 C Reactive Protein 13.21 mg/L High <8.01 Urinalysis Profile 07/27/2018 [facility] [place] Color Ching Urine Appearance Cloudy Urine Specific [place] 1.025 Normal 1.010-1.030 Urine pH 5.0 Normal 5-9 Urine Urobilinogen Negative Negative Urine Ketones Negative Negative Urine Protein Negative Negative Urine Leukocytes Negative Negative Urine Blood Negative Negative * * Abnormal Negative 5 Urine Nitrite Negative Negative Urine Bilirubin Negative Negative Urine Glucose Negative Negative 1 1 Urine Aptima GCChlam delma led between lines 1 SST 2 HSV 1 and HSV 2 share many cross-reacting antigens. Elevated titers to both HSV 1 and HSV 2 may represent crossreactive HSV antibodies rather than exposure to both HSV 1 and HSV 2. Results for this test are for research purposes only by the assay's elementary school counselor. The performance characteristics of this product have not been established. Results should not be used as a diagnostic procedure without confirmation of the diagnosis by another medically established diagnostic product or procedure. 3 [facility] Severe Sepsis and Septic Shock Management Bundle Measure requires all lactic acids initially measuring >2.0 mmol/L be repeated. 4 Because ethnic data is not always readily available, this report includes an eGFR for both -Americans and non- Americans. The National Kidney Disease Education Program (NKDEP) does not endorse the use of the MDRD equation for patients that are not between the ages of 18 and 70, are , have extremes of body size, muscle mass, or nutritional status, or are non- or non-. According to the National Kidney Foundation, irrespective of diagnosis, the stage of the disease is based on the level of kidney function: Stage Description GFR(mL/min/1.73 m(2)) 1 Kidney damage with normal or decreased GFR 90 2 Kidney damage with mild decrease in GFR 60-89 3 Moderate decrease in GFR 30-59 4 Severe decrease in GFR 15-29 5 Kidney failure <15 (or dialysis) 5 *Ascorbic acid is present which may interfere with detection of blood. Procedures Date Code Description Status 08/05/2018 13660 Pulse Oximetry Completed 04/29/2018 06000973 Colonoscopy Completed 04/27/2011 [id number] Diabetic Retinal Eye Exam Completed Medical Devices Description No Information Available Encounters Type Date Location Provider Dx Diagnosis Office Visit 11/24/2018 Main Office Tiffanie Kiko, [employer] SUPERVISOR Z11.3 Encntr screen for 11:30a infections w sexl mode of transmiss K21.9 Gastro-esophageal reflux disease without esophagitis Z11.59 Encounter for screening for other viral diseases Z11.4 Encounter for screening for human immunodeficiency virus Office Visit 08/05/2018 6:20p Main Office Marco Ziegler06.9 Acute upper Lizzie Ho respiratory infection, unspecified Office Visit 07/28/2018 2:15p Main Office Tiffanie Kiko, A09 Infectious [employer] gastroenteritis and colitis, unspecified Assessments Date Code Description Provider 12/30/2018 J06.9 Acute upper respiratory infection, Kala Matson NP unspecified 12/24/2018 Z11.1 Encounter for screening for respiratory Tye T. Charlesura, M.D. tuberculosis 12/22/2018 Z11.1 Encounter for screening for respiratory Tye T. Charlesura, M.D. tuberculosis 11/24/2018 Z11.3 Encounter for screening for infections with a Tiffanie Kiko , [employer] SUPERVISOR predominantly 11/24/2018 K21.9 Gastro-esophageal reflux disease without Tiffanie Kiko, [employer] SUPERVISOR esophagitis 11/24/2018 Z11.59 Encounter for screening for other viral Tiffanie Kiko, [employer] SUPERVISOR diseases 11/24/2018 Z11.4 Encounter for screening for human Tiffanie Kiko, [employer] SUPER[employer]OR immunodeficiency virus [HIV] 08/05/2018 J06.9 Acute upper respiratory infection, Marco Ho M.D. unspecified 07/28/2018 A09 Infectious gastroenteritis and colitis, Tiffanie Kiko, CAND[employer] SUPERVISOR unspecified Plan of Treatment 12/30/2018 - Kala Matson, SUSIJ06.9 Acute upper respiratory infection, unspecifiedComments:Call or return if you develop new fever, trouble breathing, sudden worsening, or pain in the ears, face, or chest . While the symptoms of upper respiratory infections are uncomfortable and can take a long time to go away, they rarely present significant danger. Use a humidifier at night and drink plenty of fluids during the day. Ibuprofen or tylenol are good for headaches and sore throats. Other cough and cold remedies, such as guaifenesin or phenylephrine, will not help you get better any faster. They can temporarily help with symptoms, but you should only continue to take them if you actually experience some relief within a couple hours of taking a dose. It is normal to cough for 2-3 weeks. You should be re-evaluated at the office if your cough persists longer or if you have a cough with fever,wheezing, or worsening pain.AllComments:1. Patient has been queried about patient's goals/preferences and functional/lifestyle goals at relevant visits. If relevant, describe: Has been discussed, noted above2. Treatment goals as explainedto the patient: see above3. Are there barriers to meeting treatment goals? Yes If Yes, please describe: Barriers include possible insurance limits, disease process, and difficulty with lifestyle changes4. Self-Management goals as described to the patient: Yes, see above As always, we strongly encourage a healthy diet and making physical activity a part of your every day life. If you have questions about how or where to start, please contact the office. Functional Status Description No Information Available Mental Status Description No Information Available Referrals Description No Information Available
--- OUTSIDE RECORDS SUMMARY | 2019-02-25 21:44 | XMS REPORT | Continuity of Care Document ---
:1970 External Reference #:[id number] Author Name Klarissa Marie Address [address] [facility] [place] [address] Care Team Providers Name Role Phone Ananth Marin MD - Surgery Care Team Information Market Gardener [phone] [facility] Physical Care Team Information Market Gardener Therapy - Physical Therapy Mele Schafer MD - Orthopaedic Care Team Information Market Gardener [phone] Surgery Benny Castano - Urology Care Team Information Market Gardener [phone] Problems Active Problems Provider Date Hyperlipidemia Tye Bhatt M.D. Onset: 12/18/2006 Low back pain Tye Bhatt M.D. Onset: 01/29/2007 Gastroesophageal reflux disease Tey Bhatt M.D. Onset: 01/29/2007 Anxiety state Tye [...] is a former smoker Smoking Status Reviewed: 01/11/19 Patient is a former smoker Allergies, Adverse Reactions, Alerts Active Allergies Reaction Severity Comments Date Pantoprazole severe headache, muscle cramps. 04/26/2013 Zantac 09/09/2017 Inactive Allergies Keflex diarrhea 11/03/2012 Medications Active Medications SIG Qnty Indications Ordering Provider Date Note No Work was seen in this J01.90 Liliya Georges, 01/11/2019 office today , [employer] medically excused from work 01/09/19, will return 01/14/19 Doxycycline Hyclate 1 by mouth twice a 20caps Liliya Georges, 2018 day Afnp-C 100mg Capsules Omeprazole 2 by mouth every 42caps K21.9 Tiffanie Hoover, TRUCKSMITH 11/24/2018 20mg day for two weeks, Capsules DR then 1 po qd History Medications Note please administer 1units Tye Bhatt, 09/17/2018 - the Hep A/Hep b Lizzie 12/30/2018 vaccine Azithromycin 2 by mouth today 6tabs J06.Carlyle Hair 08/05/2018 - 250mg then 1 by mouth Lizzie Ho 08/10/2018 Tablets every day x 4 days Ipratropium [place] 2 sprays each 30ml J06Andrei Hair 08/05/2018 - nostril three Lizzie Ho 08/12/2018 0.06% Solution times a day Note For Work Jay was seen by A09 Tiffanie Hoover, 07/28/2018 - me today, 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 He may not return to work until 4\\5. Medications Administered in Office Medication SIG Qnty Indications Ordering Provider Date TB Intradermal Test Tye Bhatt M.D. 12/22/2018 Injection Injection Subcutaneous Or Donte Cortés M.D. 12/08/2008 Intramuscular Injection TB Intradermal Test Nurse, Nurse 03/10/2000 Injection Immunizations CPT Code Status Date Vaccine Lot # [id number] Given 04/08/2016 Influenza Vac, Quadrivalent, Slit Virus, Im [id number] Given 12/13/2013 Tetanus And Diptheria Adult Preservative Free >7Yrs Q2038 Given 02/23/2013 Split Influenza Medicare: Fluzone 44558 Given 02/23/2013 DO Not Use Split Influenza Virus Vaccine [id number] 76144 Given 01/13/2012 DO Not Use Split Influenza Virus Vaccine [id number] 25722 Given 02/03/2011 Preservative free flu 3 yrs+ and older [id number] 18125 Given 02/23/2010 DO Not Use Split Influenza Virus Vaccine [id number] 58026 Given 02/16/2008 DO Not Use Split Influenza Virus Vaccine [id number] Given 09/12/2002 Td Immunization, For Use In Individuals 7 Years Or Older Vital Signs Date Vital Result Comment 01/11/2019 9:21am BP Systolic 118 mmHg BP Diastolic 78 mmHg Heart Rate 80 /min Body Temperature 98.8 F Respiratory Rate 12 /min O2 % BldC Oximetry 96 % Height 76.75 inches 6'4.75" Weight 320.00 lb BMI (Body Mass Index) 38.2 kg/m2 12/30/2018 5:49pm BP Systolic 140 mmHg BP Diastolic 80 mmHg Heart Rate 84 /min Body Temperature 98.8 F Respiratory Rate 16 /min Height 76.75 inches 6'4.75" measured 12/25/16 Weight 321.00 lb BMI (Body Mass Index) 38.3 kg/m2 Results Test Date Facility Test Result H/L Range Note Laboratory test [facility] RPR Non Reactive Non Reactive 1 finding 9 [address] [place] [address] (436)- - HSV 1 & 2 Igm [facility] HSV 1 IgM <1:10 titer <1:10 AB, Indirect 9 [address] [facility] [place] [address] (573)- - HSV 2 IgM Antibodies <1:10 titer <1:10 2 Chlamydia/GC 11/24/2018 [facility] Chlamydia Negative Negative Amplification [address] [facility] trachomatis, [place] [address] (607)- - Neisseria gonorrhoeae, [place] Negative Negative Laboratory test 11/24/2018 [facility] HIV 1&2 Antibody neg Negative finding (607)- - Screen (Fma) HCV AB (Fma) neg negative CBC Auto Diff 07/27/2018 [facility] White Blood Count 5.8 10^3/uL Normal 3.5- [...] Cells % 0.1 Laboratory test finding 07/27/2018 [facility] [place] Lactic Acid 0.9 mmol/L Normal 0.5- 2.0 3 Comp Metabolic Panel 07/27/2018 [facility] [place] Sodium 139 mmol/L Normal 135-145 Potassium 4.0 [...] 123.8 >60 4 Laboratory test finding 07/27/2018 [facility] Lipase 14 U/L Normal 11.0-82.0 Creatine Kinase(CK) 202 U/L Normal 10-223 C Reactive Protein 13.21 mg/L High <8.01 Urinalysis Profile 07/27/2018 [facility] [place] Urine Color Ching Urine Appearance Cloudy Urine Specific [place] 1.025 Normal 1.010-1.030 Urine pH 5.0 Normal [...] for research purposes only by the assay's cake inspector. The performance characteristics of this product have not been established. Results should not be used as a diagnostic procedure without confirmation of the diagnosis by another medically established diagnostic product or procedure. 3 [facility] Severe Sepsis and Septic Shock Management Bundle [...] blood. Procedures Date Code Description Status 08/05/2018 09092 Pulse Oximetry Completed 04/29/2018 [id number] Colonoscopy Completed 04/27/2011 [id number] Diabetic Retinal Eye Exam Completed Medical Devices Description No Information Available Encounters Type Date Location Provider Dx Diagnosis Office Visit 12/30/2018 Main Office Kala Ziegler06.9 Acute upper 5:45p SUSI Matson respiratory infection, unspecified Office Visit 12/24/2018 [place] [facility] Tye Bhatt, Z11.1 Encounter for 3:15p M.D. screening for respiratory tuberculosis Office Visit 11/24/2018 Main Office Tiffanie Hoover Z11.3 Encntr screen for 11:30a TRUCKSMITH infections w sexl mode of transmiss K21.9 Gastro-esophageal reflux disease without esophagitis Z11.59 Encounter for screening for other viral diseases Z11.4 Encounter for screening for human immunodeficiency virus Office Visit 08/05/2018 6:20p Main Office Marco Ziegler06.9 Acute upper Lizzie Ho respiratory infection, unspecified Office Visit 07/28/2018 2:15p Main Office Tiffanie Hoover A09 Infectious TRUCKSMITH gastroenteritis and colitis, unspecified Assessments Date Code Description Provider 01/11/2019 J01.90 Acute sinusitis, unspecified Klarissa Marie 12/30/2018 J06.9 Acute upper respiratory infection, Kala Matson NP unspecified 12/24/2018 Z11.1 Encounter for screening for respiratory Tye Bhatt M.D. tuberculosis 12/22/2018 Z11.1 Encounter for screening for respiratory Tye Bhatt M.D. tuberculosis 11/24/2018 Z11.3 Encounter for screening for infections Tiffanie Kiko, TRUCKSMITH with a predominantly 11/24/2018 K21.9 Gastro-esophageal reflux disease without Tiffanie Kiko, TRUCKSMITH esophagitis 11/24/2018 Z11.59 Encounter for screening for other viral Tiffanie Kiko, TRUCKSMITH diseases 11/24/2018 Z11.4 Encounter for screening for human Tiffanie Kiko, TRUCKSMITH immunodeficiency virus [HIV] 08/05/2018 J06.9 Acute upper respiratory infection, Marco Ho M.D. unspecified 07/28/2018 A09 Infectious gastroenteritis and colitis, SHARRI Diego unspecified Plan of Treatment 01/11/2019 - Liliya Georges, Afnp-CJ01.90 Acute sinusitis, unspecifiedNew Medication:Note No Work - was seen in this office today , medically excused from work 01/09/19, will return 01/14/19AllComments:Medication Management Patient Understands medications he's taking? Yes No Are there Barriersto Adherence? Yes No Has the patient been asked about herbal supplements and therapies, and OTC meds? Yes No Care Plan1. Patient has been queried about patient's goals/preferences and functional/lifestyle goals at relevant visits. If relevant, describe: na2. Treatment goals asexplained to the patient: abovesx resolution 3. Are there barriers to meeting treatment goals? Yes No If Yes, please describe:4. Self-Management goals as described to the patient: Yes Nocont sx rx: rest , fluids , add antibx f/u if no better through week or if sx worsen / persist Functional Status Description No Information Available Mental Status Description No Information Available Referrals Description No Information Available
[2019-02-25] MEDS ORDERED: Lidocaine PATCH 5%* 1 PATCH TRANSDERM ONE (21:46)
[2019-02-26] MEDS ORDERED: Lidocaine 2% w/ EPI 1:200,000* 20 ML SDV VIAL ONE ×2 (01:22)
[2019-02-26 01:52] VITALS: BP 138/88
[2019-02-26] MEDS ORDERED: Lidocaine Patch REMOVE* 1 NOTE MISC PATCH OFF ONE (10:00)
== END 2019-02-25 23:45 | disposition home or self-care (01) ==
LOC: ED 20:44
DX: M54.2 Cervicalgia (principal); K21.9 Gastro-esophageal reflux disease without esophagitis; F41.9 Anxiety disorder, unspecified; F32.9 Major depressive disorder, single episode, unspecified; Z87.891 Personal history of nicotine dependence; Z79.899 Other long term (current) drug therapy; Z86.19 Personal history of other infectious and parasitic diseases; Z88.8 Allergy status to other drugs, medicaments and biological substances
CPT/HCPCS: 72125; 96372; 99282; A9270-GY; J1885

== ENCOUNTER 2019-03-02 11:43 | Emergency (ER) | payer MEDICAID ==
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
[2019-03-02 15:35] VITALS: BP 139/92
== END 2019-03-02 15:35 | disposition home or self-care (01) ==
LOC: ED 11:43
DX: S63.611A Unspecified sprain of left index finger, initial encounter (principal); X50.9XXA Other and unspecified overexertion or strenuous movements or postures, initial encounter; Y93.72 Activity, wrestling; Y92.9 Unspecified place or not applicable; R60.9 Edema, unspecified; K21.9 Gastro-esophageal reflux disease without esophagitis; Z87.442 Personal history of urinary calculi; Z87.891 Personal history of nicotine dependence
CPT/HCPCS: 73140; 99282

== ENCOUNTER 2019-06-17 08:21 | Emergency (ER) | payer MEDICARE, MEDICAID ==
--- NOTE | 2019-06-17 08:29 | ED ---
Back Pain - HPI Summary HPI Summary: The patient is a 49 y/o M arriving via ambulance to [facility] with a chief complaint of non-focal low back pain onset yesterday. He reports a history of chronic back pain that returns intermittently, and this current episode is similar to previous ones. Today, the pain worsened as he sustained a fall when getting up to the go to the bathroom. The pain is located in the lumbar spine and radiates into the left buttock. He denies any abdominal pain, bowel or bladder incontinence, or numbness or tingling in the lower extremities. Symptoms rated 10/10 in severity. He has taken prescribed Cyclobenzaprine to little relief of the pain. He states that the only position the pain feels tolerable in is lying on his side. Any movement aggravates the pain. He saw his PCP a few days ago concerning similar symptoms. PMHx: L4-L5 herniated disc surgery 2007, arthritis, sciatica, angina, pericarditis, kidney stones. Former smoker, no EtOH, marijuana use. Medications reviewed. Allergies noted. - History of Current Complaint Stated Complaint: BACK PAIN PER EMS Hx Obtained From: Patient Onset/Duration: Lasting Days, Still Present, Worse Since - this morning Onset/Duration: Started Days Ago, Still Present Timing: Constant Back Pain Location: Is Discrete @ - lumbar Severity Initially: Severe Severity Currently: Severe Pain Intensity: 10 Pain Scale Used: 0-10 Numeric Character: Sharp Aggravating Symptom(s): Movement Alleviating Symptom(s): Position - lying on side Associated Signs And Symptoms: Negative: Numbness, Tingling, Abdominal Pain, Bladder Incontinence, Bowel Incontinence - Allergies/Home Medications Allergies/Adverse Reactions: Allergies Allergy/AdvReac Type Severity Reaction Status Date / Time pantoprazole [From Protonix] Allergy Leg Cramps Verified 02/25/19 21:23 ranitidine Allergy GI Upset Verified 02/25/19 21:23 Home Medications: Home Medications Ibuprofen TAB* [Motrin TAB* 800 MG] 800 mg PO Q6H PRN #20 tab 04/04/17 [Rx Confirmed 03/02/19] Fluoxetine HCl [Prozac] 10 mg PO DAILY 04/29/18 [History Confirmed 03/02/19] Lidocaine PATCH 5%* [Lidoderm 5% Patch*] 1 patch TRANSDERM DAILY #5 patch [Rx Confirmed 03/02/19] PMH/Surg Hx/FS Hx/Imm Hx Endocrine/Hematology History: Denies: Hx Diabetes, Hx Thyroid Disease Cardiovascular History: Reports: Hx Angina - PERICARDITIS, Other Cardiovascular Problems/Disorders - pericarditis Denies: Hx Congenital Heart Disease, Hx Congestive Heart Failure, Hx Coronary Artery Disease, Hx Deep Vein Thrombosis, Hx Hypercholesterolemia, Hx Hypotension, Hx Hypertension, Hx Myocardial Infarction, Hx Pacemaker/ICD, Hx Valvular Heart Disease Respiratory History: Denies: Hx Asthma, Hx Chronic Obstructive Pulmonary Disease (COPD) GI History: Reports: Hx Gastroesophageal Reflux Disease, Hx Jaundice - TOOK MEDS RESOLVED Denies: Hx Ulcer, Other GI Disorders History: Reports: Hx Kidney Stones - left Denies: Hx Renal Disease Musculoskeletal History: Reports: Hx Arthritis - LOW BACK, feet, Hx Back Problems, Hx Tendonitis - RIGHT ELBOW, shoulder Sensory History: Reports: Hx Contacts or Glasses - glasses Denies: Hx Eye Injury, Hx Eye Prosthesis, Hx Glaucoma, Hx Deafness, Hx Hearing Aid, Hx Hearing Problem Opthamlomology History: Reports: Hx Contacts or Glasses - glasses Denies: Hx Eye Injury, Hx Eye Prosthesis, Hx Glaucoma Neurological History: Reports: Hx Developmental Delay, Other Neuro Impairments/ Disorders - 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 Denies: Hx Headaches, Hx Migraine, Hx Seizures Psychiatric History: Reports: Hx Anxiety - ON MEDS, Hx Depression - ON MEDS, Hx Panic Disorder, Hx Inpatient Treatment, Hx Community Mental Health Tx, Hx Suicide Attempt, Hx of Violent Episodes Against Others, Hx Substance Abuse, Other Psychiatric Issues/Disorders - impulsive Denies: Hx Attention Deficit Hyperactivity Disorder, Hx Eating Disorder, Hx Post Traumatic Stress Disorder, Hx Schizophrenia, Hx Bipolar Disorder - Cancer History Hx Chemotherapy: No - Surgical History Surgical History: Yes Surgery Procedure, Year, and Place: 2008 herniated disc L4-L5 , [facility]. hernia repair 2015 Hx Anesthesia Reactions: No - Immunization History Date of Tetanus Vaccine: 2004 Date of Influenza Vaccine: Fall 2011 Infectious Disease History: Reports: Hx Hepatitis - HEP B TOOK MEDICATIONS- RESOLVED Denies: Hx Human Immunodeficiency Virus (HIV), History Other Infectious Disease - Family History Known Family History: Positive: Diabetes, Respiratory Disease - asthma - Social History Alcohol Use: None Hx Substance Use: Yes Substance Use Type: Reports: Marijuana Substance Use Comment - Amount & Last Used: IN THE PAST Hx Tobacco Use: Yes Smoking Status (MU): Former Smoker Amount Used/How Often: PACK A DAY, smoked off and on for 20 years Have You Smoked in the Last Year: Yes Review of Systems Negative: Abdominal Pain, Other - bowel incontinence Negative: incontinence Positive: Other - lumbar spine radiating into left buttock Negative: Paresthesia, Numbness All Other Systems Reviewed And Are Negative: Yes Physical Exam - Summary Physical Exam Summary: Constitutional: Well-developed, Well-nourished, Alert. (-) Distressed Skin: Warm, Dry HENT: Normocephalic; Atraumatic Eyes: Conjunctiva normal Neck: Musculoskeletal ROM normal neck. (-) JVD, (-) Stridor, (-) Tracheal deviation Cardio: Rhythm regular, rate normal, Heart sounds normal; Intact distal pulses; The pedal pulses are 2+ and symmetric. Radial pulses are 2+ and symmetric. (-) Murmur Pulmonary/Chest wall: Effort normal. (-) Respiratory distress, (-) Wheezes, (-) Rales Abd: Soft, (-) tenderness, (-) Distension, (-) Guarding, (-) Rebound Musculoskeletal: Pain to palpation of the lumbar spine, Old surgical scare noted , (-) Edema Lymph: (-) Cervical adenopathy Neuro: Alert, Oriented x3 Psych: Mood and affect Normal Triage Information Reviewed: Yes Vital Signs Reviewed: Yes Procedures - Sedation Patient Received Moderate/Deep Sedation with Procedure: No Diagnostics - Laboratory Lab Statement: Any lab studies that have been ordered have been reviewed, and results considered in the medical decision making process. - Radiology Lumbar Spine XR Radiology Interpretation Completed By: Radiologist Summary of Radiographic Findings: Impression: Unremarkable lumbar spine. This imaging report was reviewed by Dr. Bergeron. Re-Evaluation - Re-Evaluation First Eval Re-Evaluation Time: 09:45 Change: Improved Comment: Patient feeling better, safe for d/c. Results discussed, plan for PCP f /u on 06/20/2019 Back Pain Course/Dx - Course Course Of Treatment: 49 y/o M presenting via ambulance for lumbar pain worsening this morning after a fall with chronic history of back pain with L4- L5 herniated disc surgery, sciatica, arthritis. Denies abd pain, bowel or bladder incontinence, numbness/tinging of lower extremities. Cyclobenzaprine taken this morning with little relief of pain. Physical exam reveals pain with palpation of lumbar spine, old surgical scar noted. Patient received Lidocaine patch and Toradol for pain. L-Spine XR impression is negative for acute findings. Patient's pain has improved. All results discussed. Patient is safe for discharge with PCP follow up. Patient agreeable with plan. Patient ambulated with steady gait plan discharge. - Diagnoses Provider Diagnoses: Lumbar strain Discharge ED - Sign-Out/Discharge Documenting (check all that apply): Patient Departure - Patient will be discharged home. - Discharge Plan Condition: Stable Disposition: HOME Patient Education Materials: Low Back Strain (ED) Forms: *Work Release Referrals: Tye Bhatt MD [Primary Care Provider] - 06/20/19 Additional Instructions: Follow up with your primary care provider on Thursday06/20/2019 concerning today' s visit. Return to the emergency department for any new or worsening symptoms. - Billing Disposition and Condition Condition: STABLE Disposition: Home - Attestation Statements Document Initiated by Tona: Yes Documenting Scribe: Violette Huizar Provider For Whom Tona is Documenting (Include Credential): Dr. Humphrey Bergeron DO Scribe Attestation: Violette Adorno scribed for Dr. Humphrey Bergeron DO on 06/17/19 at 1305. Scribe Documentation Reviewed: Yes Provider Attestation: The documentation as recorded by the Violette brown accurately reflects the service I personally performed and the decisions made by me, Dr. Humphrey Bergeron DO Status of Scribashley Document: Viewed
[2019-06-17] MEDS ORDERED: Lidocaine PATCH 5%* 1 PATCH TRANSDERM ONE (08:31)
[2019-06-17] MEDS ORDERED: Ketorolac *IM* INJ* 60 MG/2 ML VIAL IM ONE (08:31)
--- OUTSIDE RECORDS SUMMARY | 2019-06-17 09:14 | XMS REPORT | Continuity of Care Document ---
:1970 External Reference #:[id number] Author Name Kala Matson, SUSI Address [address] [place] [address] Care Team Providers Name Role Phone Ananth Marin MD - Surgery Care Team Information Marine Cargo Surveyor [phone] [facility] Physical Care Team Information Marine Cargo Surveyor Therapy - Physical Therapy Mele Schafer MD - Orthopaedic Care Team Information Marine Cargo Surveyor [phone] Surgery Benny Castano - Urology Care Team Information Marine Cargo Surveyor [phone] Problems Active Problems Provider Date Hyperlipidemia Tye Bhatt M.D. Onset: 12/18/2006 Low back pain Tye Bhatt M.D. Onset: 01/29/2007 Gastroesophageal reflux disease Tye Bhatt M.D. Onset: 01/29/2007 Anxiety state Tye Bhatt M.D. Onset: 04/09/2007 Obesity Tye Bhatt M.D. Onset: 11/10/2007 Pure hyperglyceridemia Tye Bhatt M.D. Onset: 03/05/2009 Type 2 diabetes mellitus yTe Bhatt M.D. Onset: 07/02/2009 Epigastric pain Tye [...] Pantoprazole severe headache, muscle cramps. 04/26/2013 Zantac Hives 09/09/2017 Inactive Allergies Keflex diarrhea 11/03/2012 Medications Active Medications SIG Qnty Indications Ordering Date Provider Triamcinolone Acetonide apply to affected 15gm L30.9 Kala C. 2019 skin on ear twice Dano WOOD HACKER 0.1% Cream daily as needed for up to 10 days Cyclobenzaprine HCL 1 three times a 30tabs Tye Bhatt, 06/14/2019 10mg day as needed M.D. Tablets muscle spasm. Ibuprofen 1 by mouth three 60tabs Tye Bhatt, 06/14/2019 800mg Tablets times a day as M.D. needed with food Physical Therapy treatment and Tye Bhatt, 06/14/2019 evaluation low M.D. back pain Amoxicillin/Clavulanate 1 by mouth twice 20tabs J01.90 Tiffanie Hoover, 05/26 Potassium a day with food x SPECIAL LIBRARIAN 875-125mg Tablets 10d Note No Work ajit was seen by J01.90 Tye Bhatt, 05/26/2019 me today for back M.D. pain and may not return to work until thursday, Omeprazole 1 by mouth every 30caps K21.9 Tiffanie Hoover, 11/24/[address] day SPECIAL LIBRARIAN Valacyclovir HCL take 2 tablets 12tabs B00.89 Tiffanie Hoover, 02/23/2015 1gm twice a day for 1 SPECIAL LIBRARIAN Tablets day for each outbreak Lysine for cold sore Unknown 500mg Capsules outbreaks. Fluoxetine HCL 1 by mouth every Unknown 20mg day Capsules Propranolol HCL 1 by mouth twice Unknown 10mg day Tablets History Medications Note No Work was seen in this J01.90 Liliya Georges, 01/11/2019 - office today , Afnp-C 01/14/2019 medically excused from work 01/09/19, will return 01/14/19 Doxycycline Hyclate 1 by mouth twice 20caps Liliya Georges, 01/11/2019 - a day Afnp-C 01/21/2019 100mg Capsules Medications Administered in Office Medication SIG Qnty Indications Ordering Provider Date TB Intradermal Test Tye Bhatt M.D. 12/22/2018 Injection Injection Subcutaneous Or Donte Cortés M.D. 12/08/2008 Intramuscular Injection TB Intradermal Test Nurse, Nurse 03/10/2000 Injection Immunizations CPT Code Status Date Vaccine Lot # [id number] Given 04/08/2016 Influenza Vac, Quadrivalent, Slit Virus, Im [id number] Given 12/13/2013 Tetanus And Diptheria Adult Preservative Free >7Yrs [id number] Given 02/23/2013 Split Influenza Medicare: Fluzone [id number] Given 02/23/2013 DO Not Use Split Influenza Virus Vaccine [id number] Given 01/13/2012 DO Not Use Split Influenza Virus Vaccine [id number] 02519 Given 02/03/2011 Preservative free flu 3 yrs+ and older [id number] 88319 Given 02/23/2010 DO Not Use Split Influenza Virus Vaccine [id number] 20011 Given 02/16/2008 DO Not Use Split Influenza Virus Vaccine [id number] 15273 Given 09/12/2002 Td Immunization, For Use In Individuals 7 Years Or Older Vital Signs Date Vital Result Comment 2019 8:01am BP Systolic 116 mmHg BP Diastolic 90 mmHg Heart Rate 80 /min Body Temperature 97.3 F Height 76.75 inches 6'4.75" Weight 334.00 lb BMI (Body Mass Index) 39.9 kg/m2 06/14/2019 6:45pm BP Systolic 142 mmHg BP Diastolic 90 mmHg Heart Rate 82 /min Body Temperature 98.8 F Respiratory Rate 20 /min Weight 334.00 lb Results Test Acquired Date Facility Test Result H/L Range Note Flu A&B (Fma) 05/26/2019 family [facility] Influenza A neg (607)- - Influenza B neg Procedures Date Code Description Status 2019 88701 Remove Impact Cerumen Irrigati Completed 01/11/2019 26340 Pulse Oximetry Completed 04/29/2018 [id number] Colonoscopy Completed 04/27/2011 [id number] Diabetic Retinal Eye Exam Completed Medical Devices Description No Information Available Encounters Type Date Location Provider Dx Diagnosis Office Visit 06/14/2019 Main Office Tye Bhatt, M54.5 Low back pain 6:40p M.D. Office Visit 05/26/2019 [facility] Tiffanie Hoover J01.90 Acute sinusitis, 1:00p SPECIAL LIBRARIAN unspecified Office Visit 03/03/2019 Main Office Kala Esquivel S62.651A Nondisp fx of 6:30p SUSI Matson middle phalanx of left index finger, init W22.8xxA Striking against or struck by other objects, init encntr Office Visit 01/11/2019 9:15a Main Office Liliya J01.90 Acute sinusitis, [place], unspecified Afnp-C Office Visit 12/30/2018 5:45p Main Office Kala Esquivel J06.9 Acute upper Dano, SUSI respiratory infection, unspecified Office Visit 12/24/2018 3:15p [facility] Tye Bhatt, Z11.1 Encounter for Office M.D. screening for respiratory tuberculosis Assessments Date Code Description Provider 2019 L30.9 Dermatitis, unspecified Kala Matson NP 2019 H61.23 Impacted cerumen, bilateral Kala Matson NP 06/14/2019 M54.5 Low back pain Tye Bhatt M.D. 05/26/2019 J01.90 Acute sinusitis, unspecified EDITH DiegoP 03/03/2019 S62.651A Nondisplaced fracture of middle phalanx Kala Matson NP of left index finger, initial encounter for closed fracture 03/03/2019 W22.8xxA Striking against or struck by other Kala Matson NP objects, initial encounter 01/11/2019 J01.90 Acute sinusitis, unspecified Liliya Valenciaorf, Afnp-C 12/30/2018 J06.9 Acute upper respiratory infection, Kala Matson NP unspecified 12/24/2018 Z11.1 Encounter for screening for respiratory Tye Bhatt M.D. tuberculosis 12/22/2018 Z11.1 Encounter for screening for respiratory Tye Bhatt M.D. tuberculosis Plan of Treatment Future Appointment(s):06/21/2019 2:40 pm - Tye Bhatt M.D. at [facility]/16/2019 - Kala Matson, NPL30.9 Dermatitis, unspecifiedNew Medication:Triamcinolone Acetonide 0.1 % - apply to affected skin on ear twice daily as needed for up to 10 daysComments:If your itching doesn't improve after a week of using the cream please come back for a recheck.Call or come back at any time if you have new or worsening bftjeuqsM38.23 Impacted cerumen, bilateralAllComments:1. Patient has been queried about patient's goals/ preferences and functional/lifestyle goals at relevant visits. If [...] Mental Status Description No Information Available Referrals Refer to Reason for Referral Status Appt Date Mele Jeffers MD consult and treat jw Scheduled 03/08/2019 [facility] [id number] [phone]
--- OUTSIDE RECORDS SUMMARY | 2019-06-17 09:14 | XMS REPORT ---
:1970 Author Organization [facility] Care Team Providers Name Role Phone Chani Mele Primary Care Physician Unavailable Allergies, Adverse Reactions, Alerts Allergy Code CodeSystem Reaction Severity Criticality Status Start Substance Date Moderate Medications Medication Medication Medication Start Stop Route Dose Status Fill Code CodeSystem Date Date Instructions olanzapine [id number] RxNorm 2018-10- oral 5 mg 1 active 1 tablet at -05 10-03 tablet bedtime for at 30 day(s) bedtime Rexulti [id number] RxNorm 2018-09- oral 1 mg 1 active Take 1 tablet -27 09-25 tablet once a day once a for 30 day(s) day fluoxetine 321663 RxNorm 2018-07- oral 20 mg completed Take 1/2 -18 05-08 1/2 tablet once tablet a day for 20 once a day(s) day fluoxetine 317467 RxNorm 2018-09- oral 10 mg 1 active 1 capsule -27 -25 capsule once a day once a for 30 day(s) day topiramate 598841 RxNorm 2018-10- oral 25 mg 1 active 1 tablet -05 10-03 tablet twice a day twice a for 30 day(s) day Problems Problem Name Code CodeSystem Alternate Alternate Start End Status Narrative Code CodeSystem Date Date 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, 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, current episode severe with psychotic symptoms Relevant diagnostic tests/laboratory data Narrative No Information Procedures Procedure Code CodeSystem Target Date of Status Service Device Device Device Name Site Procedure Delivery Code Name UID Location Psychotherap [id number] SNOMED-CT () 2018-08-05 complete Mental y, 45 04 d Health- minutes with [place] patient [address], [id number] [id number] Psychotherap [id number] SNOMED-CT () 2019-03-31 complete Mental y, 45 04 d Health- minutes with [place] patient [address], [id number] [id number] Psychotherap [id number] SNOMED-CT () 2018-08-12 complete Mental y, 45 04 d Health- minutes with [place] patient [address], [id number] [id number] Office [place] [id number] SNOMED-CT () 2019-04-01 complete Mental other 7 d Health- outpatient [place] visit for [address], [facility], established [id number] patient, [id number] which requires at least 2 of these 3 cornejo components: An expanded problem focused history; An expanded problem focused examination; Medical decision making of [facility] Office or [id number] SNOMED-CT () 2018-10-29 complete Mental other 6 d Health- outpatient [place] visit for [address], [facility], established [id number] patient, [id number] which requires at least 2 of these 3 cornejo components: A problem focused history; A problem focused examination; Straight[facility]w [place] medical decision making. Counselin SNOMED-CT () 2018-08-26 complete Mental d Health[address], [id number] [id number] SNOMED-CT () 2018-09-30 complete Mental d Health[address], [id number] [id number] SNOMED-CT () 2018-10-14 complete Mental d Health[address], [id number] [id number] SNOMED-CT () 2018-10-22 complete Mental d [facility], [id number] SNOMED-CT () 2018-10-21 complete Mental d Health[address], [id number] SNOMED-CT () 2018-08-20 complete Mental d [facility], [id number] SNOMED-CT () 2018-12-23 complete Mental d [address], [id number] SNOMED-CT () 2018-12-30 complete Mental d [address], [id number] SNOMED-CT () 2019-04-07 [facility] Mental d [address], [id number] [phone] SNOMED-CT () 2019-04-21 [facility] Mental d [address], [id number] [phone] Encounters/Encounter Diagnoses Encounter Encounter Diagnosis Diagnosis Name Diagnosis Date of Service Name Code Code CodeSystem Diagnosis Delivery Location Non-Billable [id number] Habit and SNOMED-CT 2019-04-28 Behavioral impulse Health disorder, Clinic , , unspecified , Vital Signs No Information Social History Element Description Description Start End Code CodeSystem AdditionalInfo Date Date SexAssignedAtBirth Male 1971-0 M AdministrativeGender 2-20 Hospital Discharge Instructions Reason For Referral Medical Equipment FDA Assessments
--- OUTSIDE RECORDS SUMMARY | 2019-06-17 09:15 | XMS REPORT ---
:1970 Author Organization [facility] Care Team Providers Name Role Phone Chani Mele Primary Care Physician Unavailable Allergies, Adverse Reactions, Alerts Allergy Code CodeSystem Reaction Severity Criticality Status Start Substance Date Moderate Medications Medication Medication Medication Start Stop Route Dose Status Fill Code CodeSystem Date Date Instructions topiramate 115232 RxNorm 2018-10- oral 25 mg 1 active 1 tablet -05 10-03 tablet twice a day twice a for 30 day(s) day fluoxetine 835759 RxNorm 2018-09- oral 10 mg 1 active 1 capsule -27 09-25 capsule once a day once a for 30 day(s) day olanzapine 783946 RxNorm 2018-10- oral 5 mg 1 active 1 tablet at -05 10-03 tablet bedtime for at 30 day(s) bedtime Rexulti 8270900 RxNorm 2018-09- oral 1 mg 1 active Take 1 tablet -27 09-25 tablet once a day once a for 30 day(s) day fluoxetine 508279 RxNorm 2018-07- oral 20 mg completed Take 1/2 -18 05-08 1/2 tablet once tablet a day for 20 once a day(s) day Problems Problem Name Code CodeSystem Alternate Alternate Start End Status Narrative Code CodeSystem Date Date Habit and [id number] SNOMED-CT 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, unspecified Recurrent [id number] SNOMED-CT Active 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, current episode severe with psychotic symptoms Relevant diagnostic tests/laboratory data Narrative No Information Procedures Procedure Code CodeSystem Target Date of Status Service Device Device Device Name Site Procedure Delivery Code Name UID Location Psychotherap [id number] SNOMED-CT () 2018-08-05 complete Mental y, 45 04 d Health- minutes with [place]rika patient [address], [id number] [phone] Psychotherap [id number] SNOMED-CT () 2019-03-31 complete Mental y, 45 04 d Health- minutes with [place] patient [address], [id number] [phone] Psychotherap [id number] SNOMED-CT () 2018-08-12 complete Mental y, 45 04 d Health- minutes with [place] patient [address], [id number] [phone] Office or [id number] SNOMED-CT () 2019-04-01 complete Mental other 7 d Health- outpatient [place] visit for [address], [facility], established [id number] patient, [phone] which requires at least 2 of these 3 cornejo components: An expanded problem focused history; An expanded problem focused examination; Medical decision making of [facility] Office or [id number] SNOMED-CT () 2018-10-29 complete Mental other 6 d Health- outpatient [place] visit for [address], [facility], established [id number] patient, [phone] which requires at least 2 of these 3 cornejo components: A problem focused history; A problem focused examination; Straightforw [place] medical decision making. Counselin SNOMED-CT () 2018-08-26 complete Mental d Health[address], [id number] [id number] SNOMED-CT () 2018-09-30 complete Mental d Health[address], [id number] [phone] SNOMED-CT () 2018-10-14 complete Mental d Health[address], [id number] [phone] SNOMED-CT () 2018-10-22 complete Mental d Health[address], [id number] [id number] SNOMED-CT () 2018-10-21 complete Mental d Health[address], [id number] [phone] SNOMED-CT () 2018-08-20 complete Mental d Health[address], [id number] [phone] SNOMED-CT () 2018-12-23 complete Mental d [facility] [address] [place], [place], [id number] [phone] SNOMED-CT () 2018-12-30 complete Mental d [facility] [address] [place], [place], [id number] [phone] SNOMED-CT () 2019-04-07 complete Mental d [facility] [address] [place], [place], [id number] [phone] Encounters/Encounter Diagnoses Encounter Name Encounter Diagnosis Diagnosis Diagnosis Date of Service Code Code Name CodeSystem Diagnosis Delivery Location Psychotherapy [id number] Habit and SNOMED-CT 2019-04-07 Behavioral Individual 30 impulse Health min disorder, [facility] [address] [place], [place], [id number] Vital Signs No Information Social History Element Description Description Start End Code CodeSystem AdditionalInfo Date Date SexAssignedAtBirth Male 1971-1 M AdministrativeGender 2-20 Hospital Discharge Instructions Reason For Referral Medical Equipment FDA Assessments
[2019-06-17 10:03] VITALS: BP 109/62
[2019-06-17] MEDS ORDERED: Lidocaine Patch REMOVE* 1 NOTE MISC SCH (21:00)
== END 2019-06-17 10:01 | disposition home or self-care (01) ==
LOC: ED 08:21
DX: S39.012A Strain of muscle, fascia and tendon of lower back, initial encounter (principal); W18.30XA Fall on same level, unspecified, initial encounter; Y92.9 Unspecified place or not applicable; K21.9 Gastro-esophageal reflux disease without esophagitis; R62.50 Unspecified lack of expected normal physiological development in childhood; F41.9 Anxiety disorder, unspecified; F32.9 Major depressive disorder, single episode, unspecified; Z87.891 Personal history of nicotine dependence; Z79.899 Other long term (current) drug therapy; Z88.8 Allergy status to other drugs, medicaments and biological substances
CPT/HCPCS: 72100; 96372; 99282; A9270-GY; J1885

== ENCOUNTER 2021-12-21 18:59 | Observation (INO) ==
[2021-12-21] MEDS ORDERED: Ondansetron 4 mg VIAL 2 MG/ML 2 ml VIAL IV ONE (19:36)
[2021-12-21 20:17] LABS: ABS Basophils 0.1 10^3/ul (0-0.2); ABS Eosinophils 0.1 10^3/ul (0-0.6); ABS Lymphocytes 3.3 10^3/ul (1.0-4.8); ABS Monocytes 0.7 10^3/ul (0-0.8); ABS Neutrophils 4.2 10^3/ul (1.5-7.7); Eosinophil % 0.7 %; Hematocrit 41 % (42-52); Hemoglobin 13.7 g/dL (14.0-18.0); Lymphocyte % 39.3 %; Mean Corpuscular HGB Conc 34 g/dL (31-36); Mean Corpuscular Hemoglobin 30 pg (27-31); Mean Corpuscular Volume 88 fL (80-94); Mean Platelet Volume 9.5 fL (7.4-10.4); Nucleated Red Blood Cells % 0.1; Platelet Count 168 10^3/uL (150-450); Red Cell Distribution Width 13 % (10-15); White Blood Count 8.3 10^3/uL (3.5-10.8)
[2021-12-21 20:37] LABS: INR 1.07 (0.89-1.11)
[2021-12-21 20:43] LABS: Albumin 4.2 g/dL (3.2-5.2); Albumin/Globulin Ratio 1.8 (1-3); Calcium 9.4 mg/dL (8.6-10.3); Globulin 2.3 g/dL (2-4); Potassium 4.2 mmol/L (3.5-5.0); Total Bilirubin 0.6 mg/dL (0.2-1.0); Total Protein 6.5 g/dL (6.4-8.9); eGFR CKD-EPI 92.2 (>60)
[2021-12-21 21:54] LABS: High Sensitivity Troponin 1 Hr 3 pg/mL (<20)
[2021-12-22] MEDS ORDERED: Enoxaparin 40 MG/0.4 ML SYR SUBCUT SCH (01:00)
[2021-12-22] MEDS ORDERED: Acetaminophen IV 1 GM/100ML 1,000 MG/100 ML BAG IV ONE ×2 (03:59→04:06)
[2021-12-22] MEDS ORDERED: Heparin DRIP 25,000 UNITS BAG 25,000 UNITS/500 ML BAG IV SCH (09:30)
[2021-12-22] MEDS ORDERED: Heparin 5000 UNITS/ML 1 mL VIAL IV SCH (10:00)
[2021-12-22 10:33] LABS: ABS Basophils 0.1 10^3/ul (0-0.2); ABS Eosinophils 0.1 10^3/ul (0-0.6); ABS Lymphocytes 1.9 10^3/ul (1.0-4.8); ABS Monocytes 0.4 10^3/ul (0-0.8); Eosinophil % 1.3 %; Hematocrit 41 % (42-52); Lymphocyte % 35.1 %; Mean Corpuscular HGB Conc 34 g/dL (31-36); Mean Corpuscular Hemoglobin 30 pg (27-31); Mean Corpuscular Volume 89 fL (80-94); Mean Platelet Volume 9.3 fL (7.4-10.4); Platelet Count 152 10^3/uL (150-450); Red Blood Count 4.61 10^6 /uL (4.18-5.48); Red Cell Distribution Width 13 % (10-15); White Blood Count 5.5 10^3/uL (3.5-10.8)
[2021-12-22 10:53] LABS: High Sensitivity Troponin 1 Hr 4 pg/mL (<20)
[2021-12-22 11:07] LABS: C Reactive Protein 3.89 mg/L (<8.01); eGFR CKD-EPI 103.2 (>60)
[2021-12-22] MEDS ORDERED: Perflutren Lipid Microsphere 3 ML VIAL ONE (12:46)
[2021-12-22 13:17] LABS: Erythrocyte Sed Rate 4 mm/Hr (0-19)
[2021-12-22] MEDS ORDERED: Polyethylene Glycol 3350 17 GM PACKET PO ONE (13:34)
[2021-12-22] MEDS ORDERED: Magnesium Hydroxide LIQ 30 ML UDC PO PRN (20:18)
[2021-12-23 11:14] VITALS: BP 126/71
== END 2021-12-23 13:00 | disposition home or self-care (01) ==
LOC: ED 18:59 → SUATTDRO 12-22 00:05 → EDHOLD 12-22 00:05 → MEDTELE 12-22 03:11 → INTOOBSV 12-22 03:35 → MEDTELE 12-22 03:38 → SUATTDRO 12-22 16:38
PROVIDERS: ADMIT Internal Medicine; ATTEND Internal Medicine